=== PATIENT | female | born 1975 | race Caucasian/White ===

== ENCOUNTER 2023-01-05 19:40 | Observation (INO) | payer OTHER ==
[2023-01-05] MEDS ORDERED: Zofran 4 MG/2 ML VIAL IV ONE (20:03)
[2023-01-05] MEDS ORDERED: Sodium Chloride 0.9% 1000 ML 1,000 ML IV STA (20:03)
[2023-01-05 20:16] LABS: Absolute Neutrophil Ct (ANC) 4.21 x10^3/uL (1.4-6.9); BASOPHIL % 0.9 % (0.0-0.4); Basophil (Absolute #) 0.06 x10^3/uL (0-0.4); Eosinophil % 2.2 % (0.00-5.0); Eosinophil (Absolute #) 0.15 x10^3/uL (0-0.5); Hematocrit 40.8 % (35-47); Hemoglobin 13.3 g/dL (12.0-16.0); IMMATURE GRAN # 0.01 x10^3u/L (0.00-0.03); IMMATURE GRAN % 0.1 % (0.00-0.4); Lymphocyte (Absolute #) 1.75 x10^3/uL (1.0-4.6); Lymphocytes % 26.2 % (24.0-44.0); Mean Cell Volume 93.6 fL (78-100); Mean Corpuscular Hemoglobin 30.5 pg (26-32); Mean Corpuscular Hgb Concent. 32.6 g/dL (32-36); Mean Platelet Volume 13.2 fL (7.5-11.0); Monocytes % 7.5 % (0.0-12.0); Neutrophil % 63.1 % (36.0-66.0); Platelet Count 283 x10^3/uL (150-450); Red Blood Count 4.36 x10^6/uL (4.1-5.4); White Blood Count 6.7 x10^3/uL (4.0-10.5)
[2023-01-05] MEDS ORDERED: Zofran 4 MG/2 ML VIAL ONE (20:19)
[2023-01-05] MEDS ORDERED: Sodium Chloride 0.9% 1000 ML 1,000 ML ONE (20:19)
[2023-01-05] MEDS ORDERED: PROTONIX 40 MG IV IV ONE ×2 (20:21→20:51)
[2023-01-05 20:22] LABS: Appearance Clear (Clear); Bacteria Rare /HPF (None Seen); Bilirubin Negative (Negative); Blood Negative (Negative); Epithelial Cells Moderate /HPF (None Seen); Glucose, Urine Negative (Negative); Hyaline Casts NONE SEEN /LPF (0-2); Ketones Negative (Negative); Leukocyte Esterase Trace (Negative); Nitrite Negative (Negative); Ph 6.5 (4.6-8.0); Protein,Urine Dip Negative (Negative); RBC 0-2 /HPF (0-5)
[2023-01-05 20:23] LABS: ADD URINE CULTURE? NO (NO)
[2023-01-05 20:29] LABS: ALBUMIN 4.6 g/dL (3.5-5.0); ALKALINE PHOSPHATASE 196 U/L (38-126); AMYLASE 65 U/L (30-110); ANION GAP 12.3 MEQ/L (5-15); BLOOD UREA NITROGEN 12 mg/dL (7-17); CHLORIDE 107 mmol/L (98-107); Calcium 9.2 mg/dL (8.4-10.2); Carbon Dioxide 26 mmol/L (22-30); Creatinine 1 0.79 mg/dL (0.52-1.04); EST GLOMERULAR FILTRATION RATE > 60.0 ML/MIN; Glucose 94 mg/dL (74-106); LIPASE 97 U/L (23-300); Potassium 3.9 mmol/L (3.5-5.1); SGOT/AST 511 U/L (14-36); SGPT/ALT 387 U/L (0-35); SODIUM 141 mmol/L (137-145); Total Protein 7.5 g/dL (6.3-8.2)
--- NOTE | 2023-01-05 20:30 | ERPHSYRPT ---
- History of Present Illness Historian: patient Exam Limitations: no limitations Patient Subjective Stated Complaint: abd pain and pooping black stools, diarrhea Triage Nursing Assessment: pt ambulated into ER without diff, spouse at bedside. Pt c/o mid upper abd pain for a few months but got significantly worse in the last week. Pt has had diarrhea with black, tarry stools. Abd soft with active bs x4 quad, pain on palpation to mid upper abd region. Physician History: 47 yo wf w epigastric pain x 3 months. Pain is 9/10 and sharp. It does not radiate, and nothing makes it better or worse. Pt has nausea wo vomiting. She also has had diarrhea x1week which is dark. Hematochezia is denied. Dysuria/hematuria/fever/chest pain/cough/coryza/ are all denied. Pt has not seen Dr. Tabares for this pain. Timing/Duration: other (3 months) Quality: sharpness Abdominal Pain Onset Location: epigastric Pain Radiation: no radiation Modifying Factors: Improves With: nothing Associated Symptoms: diarrhea, nausea Previous symptoms: same symptoms as today Allergies/Adverse Reactions: Penicillins Allergy (Verified 01/05/23 20:09) Home Medications: Bupropion HCl Xl 150 mg [Wellbutrin XL 150 MG] 150 mg PO DAILY 01/05/23 [History] Escitalopram Oxalate [Lexapro] 10 mg PO DAILY 01/05/23 [History] Hx Tetanus, Diphtheria Vaccination/Date Given: Yes Hx Influenza Vaccination/Date Given: No Hx Pneumococcal Vaccination/Date Given: No Travel Risk - International Travel Have you traveled outside of the country in past 3 weeks: No - Coronavirus Screening Are you exhibiting any of the following symptoms?: No Close contact with a COVID-19 positive Pt in past 14-21 Days: No - Vaccine Status Have you recieved a Covid-19 vaccination: Yes Machine Feller: [facility] - Vaccination Dates Date of 2cond Vaccination (if applicable): . - Review of Systems Constitutional: No Symptoms Eyes: No Symptoms Ears, Nose, & Throat: No Symptoms Respiratory: No Symptoms Cardiac: No Symptoms Abdominal/Gastrointestinal: No Symptoms, Abdominal Pain, Nausea, Diarrhea Genitourinary Symptoms: No Symptoms Musculoskeletal: No Symptoms Skin: No Symptoms Neurological: No Symptoms Psychological: No Symptoms Endocrine: No Symptoms Hematologic/Lymphatic: No Symptoms Immunological/Allergic: No Symptoms - Past Medical History Pertinent Past Medical History: Yes Neurological History: Migraines Cardiac History: No Pertinent History Respiratory History: Asthma Endocrine Medical History: No Pertinent History Musculoskeletal History: No Pertinent History GI Medical History: Ulcer Psycho-Social History: Anxiety, Depression Other Medical History: 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 knee surgery. tonsils. carpal tunnel - Social History Smoking Status: Former smoker Exposure to second hand smoke: No Drug Use: none Patient Lives Alone: No - Female History Hx Last Menstrual Period: 12/14/22 Hx Now: No - Nursing Vital Signs Nursing Vital Signs: Initial Vital Signs Temperature 97.6 F 01/05/23 19:50 Pulse Rate 62 01/05/23 19:50 Respiratory Rate 16 01/05/23 19:50 Blood Pressure 138/81 01/05/23 19:50 O2 Sat by Pulse Oximetry 100 01/05/23 19:50 Pain Scale Pain Intensity 4 WNL - Physical Exam General Appearance: no apparent distress Eye Exam: PERRL/EOMI, eyes nml inspection Ears, Nose, Throat Exam: normal ENT inspection, TMs normal, pharynx normal, moist mucous membranes Neck Exam: normal inspection, non-tender, supple, full range of motion, No meningismus, No mass, No Brudzinski, No Kernig's Respiratory Exam: normal breath sounds, lungs clear, airway intact Cardiovascular Exam: regular rate/rhythm, normal heart sounds, normal peripheral pulses, capillary refill <2 sec, No murmur Gastrointestinal/Abdomen Exam: soft, tenderness (Moderate epigastric TTP wo gu arding or rebound) Extremity Exam: normal inspection, normal range of motion Neurologic Exam: alert, oriented x 3, cooperative, belt line feeder II-XII nml as tested, normal mood/affect, nml cerebellar function, nml station & gait, sensation nml Skin Exam: normal color, warm, dry Lymphatic Exam: No adenopathy SpO2 Interpretation: normal SpO2: 100 O2 Delivery: Room Air - Course Nursing assessment & vital signs reviewed: Yes - CT Exams Abdomen/Pelvis CT Interpretation: Tele-radiologist Report (CT ab-pelvis w IV Contrast- constipation, nothing acute) Ordered Tests: Active Orders 24 hr Category Date Time Status IV Insertion STAT Care 01/05/23 20:06 Completed ABDOMEN AND PELVIS W CONTRAST [CT] Stat Exams 01/05/23 20:53 Taken AMYLASE Stat Lab 01/05/23 20:11 Completed CBC W DIFF Stat Lab 01/05/23 20:11 Completed CMP Stat Lab 01/05/23 20:11 Completed HCG QUALITATIVE,SERUM Stat Lab 01/05/23 20:15 Completed LIPASE Stat Lab 01/05/23 20:11 Completed [place] Screen Stat Lab 01/05/23 23:01 Completed TROPONIN Q4H Lab 01/05/23 20:11 Completed TROPONIN Q4H Lab 01/06/23 00:15 Ordered TROPONIN Q4H Lab 01/06/23 04:15 Ordered UA W/RFX UR CULTURE Stat Lab 01/05/23 20:05 Completed Urine Triage Profile Stat Lab 01/05/23 20:57 Completed Transfer Order Routine Transfer 01/05/23 Completed Medication Summary Discontinued Medications Generic Name Dose Route Start Last Admin Trade Name Freq PRN Reason Stop Dose Admin Fentanyl Citrate 50 mcg 01/05/23 20:56 01/05/23 21:23 Fentanyl Citrate 100 Mcg/2 Ml* Vial IV 01/05/23 20:57 Not Given STAT ONE Sodium Chloride 1,000 mls @ 999 mls/hr 01/05/23 20:03 01/05/23 21:24 Sodium Chloride 0.9% 1000 Ml IV 01/05/23 21:03 Infused .Q1H1M STA Infusion Sodium Chloride Confirm 01/05/23 20:19 Sodium Chloride 0.9% 1000 Ml Administered 01/05/23 20:20 Dose 1,000 mls @ ud .ROUTE .STK-MED ONE Ketorolac Tromethamine 30 mg 01/05/23 20:59 01/05/23 21:00 Ketorolac Tromethamine 30 Mg/Ml Inj IV 01/05/23 21:00 30 mg STAT ONE Administration Ketorolac Tromethamine Confirm 01/05/23 20:59 Ketorolac Tromethamine 30 Mg/Ml Inj Administered 01/05/23 21:00 Dose 30 mg .ROUTE .STK-MED ONE Ondansetron HCl 4 mg 01/05/23 20:03 01/05/23 20:20 Ondansetron Hcl 4 Mg/2 Ml Vial IV 01/05/23 20:04 4 mg STAT ONE Administration Ondansetron HCl Confirm 01/05/23 20:19 Ondansetron Hcl 4 Mg/2 Ml Vial Administered 01/05/23 20:20 Dose 4 mg .ROUTE .STK-MED ONE Pantoprazole Sodium 40 mg 01/05/23 20:21 01/05/23 20:53 Pantoprazole 40 Mg Vial IV 01/05/23 20:22 40 mg STAT ONE Administration Pantoprazole Sodium Confirm 01/05/23 20:51 Pantoprazole 40 Mg Vial Administered 01/05/23 20:52 Dose 40 mg IV .STK-MED ONE Lab/Rad Data: Laboratory Result Diagrams 01/05/23 20:11 01/05/23 20:11 Laboratory Results 01/05/23 01/05/23 01/05/23 Range/Units 23:01 20:57 20:15 WBC (4.0-10.5) x10^3/uL RBC (4.1-5.4) x10^6/uL Hgb (12.0-16.0) g/dL Hct (35-47) % MCV (78-100) fL MCH (26-32) pg MCHC (32-36) g/dL RDW (11.5-14.0) % Plt Count (150-450) x10^3/uL MPV (7.5-11.0) fL Gran % (36.0-66.0) % Immature Gran % (Auto) (0.00-0.4) % Nucleat RBC Rel Count (0.00-0.1) % Eos # (Auto) (0-0.5) x10^3/uL Immature Gran # (Auto) (0.00-0.03) x10^3u/L Absolute Lymphs (auto) (1.0-4.6) x10^3/uL Absolute Monos (auto) (0.0-1.3) x10^3/uL Absolute Nucleated RBC (0.00-0.01) x10^3u/L Lymphocytes % (24.0-44.0) % Monocytes % (0.0-12.0) % Eosinophils % (0.00-5.0) % Basophils % (0.0-0.4) % Absolute Granulocytes (1.4-6.9) x10^3/uL Basophils # (0-0.4) x10^3/uL Sodium (137-145) mmol/L Potassium (3.5-5.1) mmol/L Chloride (98-107) mmol/L Carbon Dioxide (22-30) mmol/L Anion Gap (5-15) MEQ/L BUN (7-17) mg/dL Creatinine (0.52-1.04) mg/dL Estimated GFR ML/MIN Glucose (74-106) mg/dL Calcium (8.4-10.2) mg/dL Total Bilirubin (0.2-1.3) mg/dL AST (14-36) U/L ALT (0-35) U/L Alkaline Phosphatase (38-126) U/L Troponin I (0.000-0.034) ng/mL Serum Total Protein (6.3-8.2) g/dL Albumin (3.5-5.0) g/dL Amylase (30-110) U/L Lipase (23-300) U/L Serum , Qual NEGATIVE (Negative) Urine Color (Yellow) Urine Appearance (Clear) Urine pH (4.6-8.0) Ur Specific Ernul (1.005-1.030) Urine Protein (Negative) Urine Glucose (UA) (Negative) mg/dL Urine Ketones (Negative) Urine Blood (Negative) Urine Nitrite (Negative) Urine Bilirubin (Negative) Urine Urobilinogen (0.2) mg/dL Ur Leukocyte Esterase (Negative) U Hyaline Cast (Auto) (0-2) /LPF Urine Microscopic RBC (0-5) /HPF Urine Microscopic WBC (0-5) /HPF Ur Epithelial Cells (None Seen) /HPF Urine Bacteria (None Seen) /HPF Urine Culture Reflexed (NO) Urine Opiates Level NEGATIVE (NEGATIVE) Ur Methadone NEGATIVE (NEGATIVE) Urine Barbiturates NEGATIVE (NEGATIVE) Ur Phencyclidine (PCP) NEGATIVE (NEGATIVE) Urine Amphetamine NEGATIVE (NEGATIVE) U Benzodiazepine Level NEGATIVE (NEGATIVE) Urine Cocaine NEGATIVE (NEGATIVE) Urine Marijuana (THC) NEGATIVE (NEGATIVE) Monoscreen NEGATIVE (Negative) Influenza Type A Ag (NEGATIVE) Influenza Type B Ag (NEGATIVE) RSV (PCR) (NEGATIVE) SARS-CoV-2 (PCR) (NEGATIVE) 01/05/23 01/05/23 01/05/23 Range/Units 20:11 20:11 20:11 WBC (4.0-10.5) x10^3/uL RBC (4.1-5.4) x10^6/uL Hgb (12.0-16.0) g/dL Hct (35-47) % MCV (78-100) fL MCH (26-32) pg MCHC (32-36) g/dL RDW (11.5-14.0) % Plt Count (150-450) x10^3/uL MPV (7.5-11.0) fL Gran % (36.0-66.0) % Immature Gran % (Auto) (0.00-0.4) % Nucleat RBC Rel Count (0.00-0.1) % Eos # (Auto) (0-0.5) x10^3/uL Immature Gran # (Auto) (0.00-0.03) x10^3u/L Absolute Lymphs (auto) (1.0-4.6) x10^3/uL Absolute Monos (auto) (0.0-1.3) x10^3/uL Absolute Nucleated RBC (0.00-0.01) x10^3u/L Lymphocytes % (24.0-44.0) % Monocytes % (0.0-12.0) % Eosinophils % (0.00-5.0) % Basophils % (0.0-0.4) % Absolute Granulocytes (1.4-6.9) x10^3/uL Basophils # (0-0.4) x10^3/uL Sodium 141 (137-145) mmol/L Potassium 3.9 (3.5-5.1) mmol/L Chloride 107 (98-107) mmol/L Carbon Dioxide 26 (22-30) mmol/L Anion Gap 12.3 (5-15) MEQ/L BUN 12 (7-17) mg/dL Creatinine 0.79 (0.52-1.04) mg/dL Estimated GFR > 60.0 ML/MIN Glucose 94 (74-106) mg/dL Calcium 9.2 (8.4-10.2) mg/dL Total Bilirubin 1.60 H (0.2-1.3) mg/dL AST 511 H (14-36) U/L ALT 387 H (0-35) U/L Alkaline Phosphatase 196 H (38-126) U/L Troponin I < 0.012 (0.000-0.034) ng/mL Serum Total Protein 7.5 (6.3-8.2) g/dL Albumin 4.6 (3.5-5.0) g/dL Amylase 65 (30-110) U/L Lipase 97 (23-300) U/L Serum , Qual (Negative) Urine Color (Yellow) Urine Appearance (Clear) Urine pH (4.6-8.0) Ur Specific Ernul (1.005-1.030) Urine Protein (Negative) Urine Glucose (UA) (Negative) mg/dL Urine Ketones (Negative) Urine Blood (Negative) Urine Nitrite (Negative) Urine Bilirubin (Negative) Urine Urobilinogen (0.2) mg/dL Ur Leukocyte Esterase (Negative) U Hyaline Cast (Auto) (0-2) /LPF Urine Microscopic RBC (0-5) /HPF Urine Microscopic WBC (0-5) /HPF Ur Epithelial Cells (None Seen) /HPF Urine Bacteria (None Seen) /HPF Urine Culture Reflexed (NO) Urine Opiates Level (NEGATIVE) Ur Methadone (NEGATIVE) Urine Barbiturates (NEGATIVE) Ur Phencyclidine (PCP) (NEGATIVE) Urine Amphetamine (NEGATIVE) U Benzodiazepine Level (NEGATIVE) Urine Cocaine (NEGATIVE) Urine Marijuana (THC) (NEGATIVE) Monoscreen (Negative) Influenza Type A Ag NEGATIVE (NEGATIVE) Influenza Type B Ag NEGATIVE (NEGATIVE) RSV (PCR) NEGATIVE (NEGATIVE) SARS-CoV-2 (PCR) NEGATIVE (NEGATIVE) 01/05/23 01/05/23 Range/Units 20:11 20:05 WBC 6.7 (4.0-10.5) x10^3/uL RBC 4.36 (4.1-5.4) x10^6/uL Hgb 13.3 (12.0-16.0) g/dL Hct 40.8 (35-47) % MCV 93.6 (78-100) fL MCH 30.5 (26-32) pg MCHC 32.6 (32-36) g/dL RDW 13.0 (11.5-14.0) % Plt Count 283 (150-450) x10^3/uL MPV 13.2 H (7.5-11.0) fL Gran % 63.1 (36.0-66.0) % Immature Gran % (Auto) 0.1 (0.00-0.4) % Nucleat RBC Rel Count 0.0 (0.00-0.1) % Eos # (Auto) 0.15 (0-0.5) x10^3/uL Immature Gran # (Auto) 0.01 (0.00-0.03) x10^3u/L Absolute Lymphs (auto) 1.75 (1.0-4.6) x10^3/uL Absolute Monos (auto) 0.50 (0.0-1.3) x10^3/uL Absolute Nucleated RBC 0.00 (0.00-0.01) x10^3u/L Lymphocytes % 26.2 (24.0-44.0) % Monocytes % 7.5 (0.0-12.0) % Eosinophils % 2.2 (0.00-5.0) % Basophils % 0.9 (0.0-0.4) % Absolute Granulocytes 4.21 (1.4-6.9) x10^3/uL Basophils # 0.06 (0-0.4) x10^3/uL Sodium (137-145) mmol/L Potassium (3.5-5.1) mmol/L Chloride (98-107) mmol/L Carbon Dioxide (22-30) mmol/L Anion Gap (5-15) MEQ/L BUN (7-17) mg/dL Creatinine (0.52-1.04) mg/dL Estimated GFR ML/MIN Glucose (74-106) mg/dL Calcium (8.4-10.2) mg/dL Total Bilirubin (0.2-1.3) mg/dL AST (14-36) U/L ALT (0-35) U/L Alkaline Phosphatase (38-126) U/L Troponin I (0.000-0.034) ng/mL Serum Total Protein (6.3-8.2) g/dL Albumin (3.5-5.0) g/dL Amylase (30-110) U/L Lipase (23-300) U/L Serum , Qual (Negative) Urine Color Yellow (Yellow) Urine Appearance Clear (Clear) Urine pH 6.5 (4.6-8.0) Ur Specific Ernul 1.010 (1.005-1.030) Urine Protein Negative (Negative) Urine Glucose (UA) Negative (Negative) mg/dL Urine Ketones Negative (Negative) Urine Blood Negative (Negative) Urine Nitrite Negative (Negative) Urine Bilirubin Negative (Negative) Urine Urobilinogen 1.0 A (0.2) mg/dL Ur Leukocyte Esterase Trace A (Negative) U Hyaline Cast (Auto) NONE SEEN (0-2) /LPF Urine Microscopic RBC 0-2 (0-5) /HPF Urine Microscopic WBC 3-5 (0-5) /HPF Ur Epithelial Cells Moderate A (None Seen) /HPF Urine Bacteria Rare A (None Seen) /HPF Urine Culture Reflexed NO (NO) Urine Opiates Level (NEGATIVE) Ur Methadone (NEGATIVE) Urine Barbiturates (NEGATIVE) Ur Phencyclidine (PCP) (NEGATIVE) Urine Amphetamine (NEGATIVE) U Benzodiazepine Level (NEGATIVE) Urine Cocaine (NEGATIVE) Urine Marijuana (THC) (NEGATIVE) Monoscreen (Negative) Influenza Type A Ag (NEGATIVE) Influenza Type B Ag (NEGATIVE) RSV (PCR) (NEGATIVE) SARS-CoV-2 (PCR) (NEGATIVE) - Progress Progress Note: 01/05/23 22:[address] Rousseau 01/05/23 23:41 Nursing note and vital signs reviewed No food or housing insecurities noted All lab and CT results reviewed and shared w pt/ Additional history per 30mg IV Toradol w mild improvement in pain Obs per Dr. Rousseau Pt is a full code Counseled pt/family regarding: lab results, diagnosis, need for follow-up, rad results - Departure Departure Disposition: Observation Clinical Impression: Epigastric pain, Transaminitis Condition: Stable Critical Care Time: No
[2023-01-05 20:50] LABS: INFLUENZA A NEGATIVE (NEGATIVE); INFLUENZA B NEGATIVE (NEGATIVE); RESPIRATORY SYNCTIAL VIRUS NEGATIVE (NEGATIVE); SARS-CoV-2 Xpert Express NEGATIVE (NEGATIVE)
[2023-01-05] MEDS ORDERED: SUBLIMAZE 100 MCG/2 ML IV ONE (20:56)
[2023-01-05] MEDS ORDERED: TORAdol 30 mg Injection ONE (20:59)
[2023-01-05] MEDS ORDERED: TORAdol 30 mg Injection IV ONE (20:59)
[2023-01-05 21:19] LABS: Amphetamine,Urine NEGATIVE (NEGATIVE); Barbiturate,Urine NEGATIVE (NEGATIVE); Benzodiazepine,Urine NEGATIVE (NEGATIVE); Cocaine,Urine NEGATIVE (NEGATIVE); Methadone,Urine NEGATIVE (NEGATIVE); Opiate,Urine NEGATIVE (NEGATIVE); PCP,Urine NEGATIVE (NEGATIVE); THC,Urine NEGATIVE (NEGATIVE)
[2023-01-06] MEDS ORDERED: PROTONIX 40 MG IV IV SCH ×2 (01:45→22:00)
--- NOTE | 2023-01-06 01:48 | PCM.HP ---
History of Present Illness - Chief Complaint Chief Complaint: Abdominal pain/Transaminitis Date: 01/06/23 History of Present Illness: is a 47 year old female. 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 Pain in HEATHER region. Pt has hx of chronic abd pain with pain in same location. Pain worse the last few days. Pt had also noted black stool. Pt denies hx of NSAID use. Denies tylenol use. Pt was admitted 2/2 increased LFTs: hx of cholecystectomy/denies abnormal labs last September. - Review of Systems Constitutional: No Weight Loss Eyes: No Symptoms Ears, Nose, & Throat: No Symptoms Respiratory: No Symptoms Cardiac: No Symptoms Abdominal/Gastrointestinal: Abdominal Pain Genitourinary Symptoms: No Symptoms Musculoskeletal: No Symptoms Skin: Rash Neurological: Parasthesia Psychological: No Symptoms Endocrine: No Symptoms Hematologic/Lymphatic: No Symptoms Medications & Allergies Home Medications: Home Medication List Bupropion HCl Xl 150 mg [Wellbutrin XL 150 MG] 150 mg PO DAILY 01/05/23 [History Confirmed 01/05/23] Escitalopram Oxalate [Lexapro] 10 mg PO DAILY 01/05/23 [History Confirmed 01/05/23] Allergies/Adverse Reactions: Allergies Allergy/AdvReac Type Severity Reaction Status Date / Time Penicillins Allergy Verified 01/05/23 20:09 - Past Medical History Past Medical History: Yes Neurological History: Migraines Cardiac History: No Pertinent History Respiratory History: Asthma Endocrine Medical History: No Pertinent History Musculoskelatal History: No Pertinent History GI Medical History: Ulcer Pyscho-Social History: Anxiety, Depression Comment: back issues in the past, EOE - Female History Hx Last Menstrual Period: 12/14/22 Are you now?: No - Past Surgical History Past Surgical History: Yes GI Surgical History: Cholecystectomy Other Surgical History: explor lap. knee surgery. tonsils. carpal tunnel - Social History Smoking Status: Never smoker Exposure to second hand smoke: No Alcohol: Occasionally Drug Use: none - Physical Exam Vital Signs: Vital Signs - 24 hr Temp Pulse Resp BP Pulse Ox 01/05/23 23:51 97.4 F 51 L 17 118/64 100 01/05/23 23:44 100 01/05/23 23:07 62 111/77 100 01/05/23 22:07 54 L 17 120/78 98 01/05/23 21:00 54 L 17 103/99 100 01/05/23 20:48 52 L 16 136/81 100 01/05/23 19:50 97.6 F 62 16 138/81 100 General Appearance: no apparent distress Neurologic Exam: alert, oriented x 3, cooperative Eye Exam: PERRL/EOMI Ears, Nose, Throat Exam: normal ENT inspection Neck Exam: normal inspection Respiratory Exam: normal breath sounds Cardiovascular Exam: regular rate/rhythm, normal heart sounds Gastrointestinal/Abdomen Exam: soft, normal bowel sounds, No tenderness Back Exam: normal inspection Skin Exam: rash (in hands) Results - Labs Lab/Micro Results: Lab Results-Last 24 Hours 01/05/23 01/05/23 01/05/23 Range/Units 20:05 20:11 20:11 WBC 6.7 (4.0-10.5) x10^3/uL RBC 4.36 (4.1-5.4) x10^6/uL Hgb 13.3 (12.0-16.0) g/dL Hct 40.8 (35-47) % MCV 93.6 (78-100) fL MCH 30.5 (26-32) pg MCHC 32.6 (32-36) g/dL RDW 13.0 (11.5-14.0) % Plt Count 283 (150-450) x10^3/uL MPV 13.2 H (7.5-11.0) fL Gran % 63.1 (36.0-66.0) % Immature Gran % (Auto) 0.1 (0.00-0.4) % Nucleat RBC Rel Count 0.0 (0.00-0.1) % Eos # (Auto) 0.15 (0-0.5) x10^3/uL Immature Gran # (Auto) 0.01 (0.00-0.03) x10^3u/L Absolute Lymphs (auto) 1.75 (1.0-4.6) x10^3/uL Absolute Monos (auto) 0.50 (0.0-1.3) x10^3/uL Absolute Nucleated RBC 0.00 (0.00-0.01) x10^3u/L Lymphocytes % 26.2 (24.0-44.0) % Monocytes % 7.5 (0.0-12.0) % Eosinophils % 2.2 (0.00-5.0) % Basophils % 0.9 (0.0-0.4) % Absolute Granulocytes 4.21 (1.4-6.9) x10^3/uL Basophils # 0.06 (0-0.4) x10^3/uL Sodium 141 (137-145) mmol/L Potassium 3.9 (3.5-5.1) mmol/L Chloride 107 (98-107) mmol/L Carbon Dioxide 26 (22-30) mmol/L Anion Gap 12.3 (5-15) MEQ/L BUN 12 (7-17) mg/dL Creatinine 0.79 (0.52-1.04) mg/dL Estimated GFR > 60.0 ML/MIN Glucose 94 (74-106) mg/dL Calcium 9.2 (8.4-10.2) mg/dL Total Bilirubin 1.60 H (0.2-1.3) mg/dL AST 511 H (14-36) U/L ALT 387 H (0-35) U/L Alkaline Phosphatase 196 H (38-126) U/L Troponin I (0.000-0.034) ng/mL Serum Total Protein 7.5 (6.3-8.2) g/dL Albumin 4.6 (3.5-5.0) g/dL Amylase 65 (30-110) U/L Lipase 97 (23-300) U/L Serum , Qual (Negative) Urine Color Yellow (Yellow) Urine Appearance Clear (Clear) Urine pH 6.5 (4.6-8.0) Ur Specific [place] 1.010 (1.005-1.030) Urine Protein Negative (Negative) Urine Glucose (UA) Negative (Negative) mg/dL Urine Ketones Negative (Negative) Urine Blood Negative (Negative) Urine Nitrite Negative (Negative) Urine Bilirubin Negative (Negative) Urine Urobilinogen 1.0 A (0.2) mg/dL Ur Leukocyte Esterase Trace A (Negative) U Hyaline Cast (Auto) NONE SEEN (0-2) /LPF Urine Microscopic RBC 0-2 (0-5) /HPF Urine Microscopic WBC 3-5 (0-5) /HPF Ur Epithelial Cells Moderate A (None Seen) /HPF Urine Bacteria Rare A (None Seen) /HPF Urine Culture Reflexed NO (NO) Urine Opiates Level (NEGATIVE) Ur Methadone (NEGATIVE) Urine Barbiturates (NEGATIVE) Ur Phencyclidine (PCP) (NEGATIVE) Urine Amphetamine (NEGATIVE) U Benzodiazepine Level (NEGATIVE) Urine Cocaine (NEGATIVE) Urine Marijuana (THC) (NEGATIVE) Monoscreen (Negative) Influenza Type A Ag (NEGATIVE) Influenza Type B Ag (NEGATIVE) RSV (PCR) (NEGATIVE) SARS-CoV-2 (PCR) (NEGATIVE) 01/05/23 01/05/23 01/05/23 Range/Units 20:11 20:11 20:15 WBC (4.0-10.5) x10^3/uL RBC (4.1-5.4) x10^6/uL Hgb (12.0-16.0) g/dL Hct (35-47) % MCV (78-100) fL MCH (26-32) pg MCHC (32-36) g/dL RDW (11.5-14.0) % Plt Count (150-450) x10^3/uL MPV (7.5-11.0) fL Gran % (36.0-66.0) % Immature Gran % (Auto) (0.00-0.4) % Nucleat RBC Rel Count (0.00-0.1) % Eos # (Auto) (0-0.5) x10^3/uL Immature Gran # (Auto) (0.00-0.03) x10^3u/L Absolute Lymphs (auto) (1.0-4.6) x10^3/uL Absolute Monos (auto) (0.0-1.3) x10^3/uL Absolute Nucleated RBC (0.00-0.01) x10^3u/L Lymphocytes % (24.0-44.0) % Monocytes % (0.0-12.0) % Eosinophils % (0.00-5.0) % Basophils % (0.0-0.4) % Absolute Granulocytes (1.4-6.9) x10^3/uL Basophils # (0-0.4) x10^3/uL Sodium (137-145) mmol/L Potassium (3.5-5.1) mmol/L Chloride (98-107) mmol/L Carbon Dioxide (22-30) mmol/L Anion Gap (5-15) MEQ/L BUN (7-17) mg/dL Creatinine (0.52-1.04) mg/dL Estimated GFR ML/MIN Glucose (74-106) mg/dL Calcium (8.4-10.2) mg/dL Total Bilirubin (0.2-1.3) mg/dL AST (14-36) U/L ALT (0-35) U/L Alkaline Phosphatase (38-126) U/L Troponin I < 0.012 (0.000-0.034) ng/mL Serum Total Protein (6.3-8.2) g/dL Albumin (3.5-5.0) g/dL Amylase (30-110) U/L Lipase (23-300) U/L Serum , Qual NEGATIVE (Negative) Urine Color (Yellow) Urine Appearance (Clear) Urine pH (4.6-8.0) Ur Specific [place] (1.005-1.030) Urine Protein (Negative) Urine Glucose (UA) (Negative) mg/dL Urine Ketones (Negative) Urine Blood (Negative) Urine Nitrite (Negative) Urine Bilirubin (Negative) Urine Urobilinogen (0.2) mg/dL Ur Leukocyte Esterase (Negative) U Hyaline Cast (Auto) (0-2) /LPF Urine Microscopic RBC (0-5) /HPF Urine Microscopic WBC (0-5) /HPF Ur Epithelial Cells (None Seen) /HPF Urine Bacteria (None Seen) /HPF Urine Culture Reflexed (NO) Urine Opiates Level (NEGATIVE) Ur Methadone (NEGATIVE) Urine Barbiturates (NEGATIVE) Ur Phencyclidine (PCP) (NEGATIVE) Urine Amphetamine (NEGATIVE) U Benzodiazepine Level (NEGATIVE) Urine Cocaine (NEGATIVE) Urine Marijuana (THC) (NEGATIVE) Monoscreen (Negative) Influenza Type A Ag NEGATIVE (NEGATIVE) Influenza Type B Ag NEGATIVE (NEGATIVE) RSV (PCR) NEGATIVE (NEGATIVE) SARS-CoV-2 (PCR) NEGATIVE (NEGATIVE) 01/05/23 01/05/23 Range/Units 20:57 23:01 WBC (4.0-10.5) x10^3/uL RBC (4.1-5.4) x10^6/uL Hgb (12.0-16.0) g/dL Hct (35-47) % MCV (78-100) fL MCH (26-32) pg MCHC (32-36) g/dL RDW (11.5-14.0) % Plt Count (150-450) x10^3/uL MPV (7.5-11.0) fL Gran % (36.0-66.0) % Immature Gran % (Auto) (0.00-0.4) % Nucleat RBC Rel Count (0.00-0.1) % Eos # (Auto) (0-0.5) x10^3/uL Immature Gran # (Auto) (0.00-0.03) x10^3u/L Absolute Lymphs (auto) (1.0-4.6) x10^3/uL Absolute Monos (auto) (0.0-1.3) x10^3/uL Absolute Nucleated RBC (0.00-0.01) x10^3u/L Lymphocytes % (24.0-44.0) % Monocytes % (0.0-12.0) % Eosinophils % (0.00-5.0) % Basophils % (0.0-0.4) % Absolute Granulocytes (1.4-6.9) x10^3/uL Basophils # (0-0.4) x10^3/uL Sodium (137-145) mmol/L Potassium (3.5-5.1) mmol/L Chloride (98-107) mmol/L Carbon Dioxide (22-30) mmol/L Anion Gap (5-15) MEQ/L BUN (7-17) mg/dL Creatinine (0.52-1.04) mg/dL Estimated GFR ML/MIN Glucose (74-106) mg/dL Calcium (8.4-10.2) mg/dL Total Bilirubin (0.2-1.3) mg/dL AST (14-36) U/L ALT (0-35) U/L Alkaline Phosphatase (38-126) U/L Troponin I (0.000-0.034) ng/mL Serum Total Protein (6.3-8.2) g/dL Albumin (3.5-5.0) g/dL Amylase (30-110) U/L Lipase (23-300) U/L Serum , Qual (Negative) Urine Color (Yellow) Urine Appearance (Clear) Urine pH (4.6-8.0) Ur Specific [place] (1.005-1.030) Urine Protein (Negative) Urine Glucose (UA) (Negative) mg/dL Urine Ketones (Negative) Urine Blood (Negative) Urine Nitrite (Negative) Urine Bilirubin (Negative) Urine Urobilinogen (0.2) mg/dL Ur Leukocyte Esterase (Negative) U Hyaline Cast (Auto) (0-2) /LPF Urine Microscopic RBC (0-5) /HPF Urine Microscopic WBC (0-5) /HPF Ur Epithelial Cells (None Seen) /HPF Urine Bacteria (None Seen) /HPF Urine Culture Reflexed (NO) Urine Opiates Level NEGATIVE (NEGATIVE) Ur Methadone NEGATIVE (NEGATIVE) Urine Barbiturates NEGATIVE (NEGATIVE) Ur Phencyclidine (PCP) NEGATIVE (NEGATIVE) Urine Amphetamine NEGATIVE (NEGATIVE) U Benzodiazepine Level NEGATIVE (NEGATIVE) Urine Cocaine NEGATIVE (NEGATIVE) Urine Marijuana (THC) NEGATIVE (NEGATIVE) Monoscreen NEGATIVE (Negative) Influenza Type A Ag (NEGATIVE) Influenza Type B Ag (NEGATIVE) RSV (PCR) (NEGATIVE) SARS-CoV-2 (PCR) (NEGATIVE) - Radiology Impressions Radiology Exams & Impressions: Radiology Procedures Category Date Time Status ABDOMEN AND PELVIS W CONTRAST [CT] Stat Exams 01/05/23 20:53 Taken Assessment/Plan (1) Transaminitis Current Visit: Yes Status: Acute Assessment & Plan: A/P: 1. Increased LFTs: shows both obstruction and transaminitis. Hx of cholecystectomy. Will send hep serologies/tylenol. ? if needs MRCP. Will need GI consult in am 2. Hx of PUD/Melena: Consult GI for endoscopy 3. Chronic Urticaria: will need outpt AI eval 4. FEN: oral diet 5. PX: Pt is mobile.? GI bleed. Amado Rousseau MD entire consult done via telemedicine. Code(s): R74.01 - ELEVATION OF LEVELS OF LIVER TRANSAMINASE LEVELS Telemedicine Encounter - Telemedicine Encounter Telemedicine Encounter: The entirety of this encounter was performed via Telemedicine"
[2023-01-06] MEDS ORDERED: ULTRAM 50 MG PO PRN (02:29)
[2023-01-06 05:01] LABS: Absolute Neutrophil Ct (ANC) 2.56 x10^3/uL (1.4-6.9); BASOPHIL % 1.3 % (0.0-0.4); Basophil (Absolute #) 0.06 x10^3/uL (0-0.4); Eosinophil % 2.5 % (0.00-5.0); Eosinophil (Absolute #) 0.12 x10^3/uL (0-0.5); Hematocrit 33.6 % (35-47); IMMATURE GRAN # 0.01 x10^3u/L (0.00-0.03); IMMATURE GRAN % 0.2 % (0.00-0.4); Lymphocyte (Absolute #) 1.54 x10^3/uL (1.0-4.6); Lymphocytes % 32.3 % (24.0-44.0); Mean Cell Volume 92.3 fL (78-100); Mean Corpuscular Hemoglobin 30.2 pg (26-32); Mean Corpuscular Hgb Concent. 32.7 g/dL (32-36); Mean Platelet Volume 13.7 fL (7.5-11.0); Monocyte (Absolute #) 0.48 x10^3/uL (0.0-1.3); Monocytes % 10.1 % (0.0-12.0); Neutrophil % 53.6 % (36.0-66.0); Platelet Count 215 x10^3/uL (150-450); Red Blood Count 3.64 x10^6/uL (4.1-5.4); Red Cell Distribution Width 13.2 % (11.5-14.0); White Blood Count 4.8 x10^3/uL (4.0-10.5)
[2023-01-06 05:17] LABS: ALBUMIN 3.4 g/dL (3.5-5.0); ALKALINE PHOSPHATASE 156 U/L (38-126); ANION GAP 8.2 MEQ/L (5-15); BLOOD UREA NITROGEN 10 mg/dL (7-17); CHLORIDE 111 mmol/L (98-107); Calcium 8.4 mg/dL (8.4-10.2); Carbon Dioxide 24 mmol/L (22-30); Creatinine 1 0.73 mg/dL (0.52-1.04); EST GLOMERULAR FILTRATION RATE > 60.0 ML/MIN; Glucose 91 mg/dL (74-106); Potassium 3.9 mmol/L (3.5-5.1); SGOT/AST 421 U/L (14-36); SGPT/ALT 376 U/L (0-35); SODIUM 139 mmol/L (137-145)
[2023-01-06 08:15] LABS: Slide Review 1 YES
--- NOTE | 2023-01-06 08:43 | XRAY ---
Indication: Epigastric pain. Nausea, vomiting, diarrhea, and blood in stool. Multiple contiguous axial images obtained through the abdomen and pelvis using 80 cc Isovue 370 contrast. Comparison: None Lung bases clear. Heart not enlarged. Noncontrasted stomach and bowel loops appear nonobstructed with normal appendix. Mild diffuse fecal debris throughout, greatest in the ascending and transverse colon. No free fluid/air. Previous cholecystectomy. Remaining liver, pancreas, spleen, adrenal glands, kidneys, ureters, bladder, uterus, and aorta are normal in CT appearance and attenuation. No pathologic retroperitoneal lymphadenopathy. Osseous structures intact with moderate L5-S1 degenerative disc disease and bilateral L5 spondylolysis with 1.3 cm anterolisthesis. Also moderate double curvature thoracolumbar scoliosis. Impression: 1. Diffuse fecal stasis and chronic bony findings. 2. Remaining CT abdomen/pelvis with contrast exam is negative. Comment: Preliminary interpretation made by [facility]. No critical discrepancy.
--- NOTE | 2023-01-06 08:44 | PCM.NOTE ---
Date and Time: 01/06/23 0840 Subjective Assessment: patient is comfortable at the moment, has some chronic GI issues, hx of EoE. for the last 3 days worsening epigastric pain with black diarrhea. no nsaid use, no new meds. has been fatigued and acute illness, +exposure to mono Objective Exam General Appearance: no apparent distress, alert Neurologic Exam: alert, oriented x 3, cooperative, normal mood/affect, nml cerebellar function, sensation nml, No motor deficits Skin Exam: normal color, warm, dry Eye Exam: PERRL, EOMI, eyes nml inspection Ears, Nose, Throat Exam: normal ENT inspection, pharynx normal, moist mucous membranes Neck Exam: normal inspection, non-tender, supple, full range of motion Respiratory Exam: normal breath sounds, lungs clear, No respiratory distress Cardiovascular Exam: regular rate/rhythm, normal heart sounds Gastrointestinal/Abdomen Exam: soft, No tenderness, No mass, No guarding, No rebound Extremity Exam: normal inspection, normal range of motion OBJECTIVE DATA Vital Signs: Vital Signs - 24 hr Temp Pulse Resp BP Pulse Ox 01/06/23 07:16 98.6 F 57 L 16 94/56 98 01/06/23 03:40 97.9 F 55 L 16 104/55 97 01/05/23 23:51 97.4 F 51 L 17 118/64 100 01/05/23 23:44 100 01/05/23 23:07 62 111/77 100 01/05/23 22:07 54 L 17 120/78 98 01/05/23 21:00 54 L 17 103/99 100 01/05/23 20:48 52 L 16 136/81 100 01/05/23 19:50 97.6 F 62 16 138/81 100 Pain Assessment - Last Documented Pain Intensity 6 Pain Scale Used 0-10 Pain Scale Intake and Output: Intake & Output 01/03/23 01/04/23 01/05/23 01/06/23 11:59 11:59 11:59 11:59 Weight 69.5 kg Lab Results: Lab Results-Last 24 Hours 01/05/23 01/05/23 01/05/23 Range/Units 20:05 20:11 20:11 WBC 6.7 (4.0-10.5) x10^3/uL RBC 4.36 (4.1-5.4) x10^6/uL Hgb 13.3 (12.0-16.0) g/dL Hct 40.8 (35-47) % MCV 93.6 (78-100) fL MCH 30.5 (26-32) pg MCHC 32.6 (32-36) g/dL RDW 13.0 (11.5-14.0) % Plt Count 283 (150-450) x10^3/uL MPV 13.2 H (7.5-11.0) fL Gran % 63.1 (36.0-66.0) % Immature Gran % (Auto) 0.1 (0.00-0.4) % Nucleat RBC Rel Count 0.0 (0.00-0.1) % Eos # (Auto) 0.15 (0-0.5) x10^3/uL Immature Gran # (Auto) 0.01 (0.00-0.03) x10^3u/L Absolute Lymphs (auto) 1.75 (1.0-4.6) x10^3/uL Absolute Monos (auto) 0.50 (0.0-1.3) x10^3/uL Absolute Nucleated RBC 0.00 (0.00-0.01) x10^3u/L Lymphocytes % 26.2 (24.0-44.0) % Monocytes % 7.5 (0.0-12.0) % Eosinophils % 2.2 (0.00-5.0) % Basophils % 0.9 (0.0-0.4) % Absolute Granulocytes 4.21 (1.4-6.9) x10^3/uL Basophils # 0.06 (0-0.4) x10^3/uL Sodium 141 (137-145) mmol/L Potassium 3.9 (3.5-5.1) mmol/L Chloride 107 (98-107) mmol/L Carbon Dioxide 26 (22-30) mmol/L Anion Gap 12.3 (5-15) MEQ/L BUN 12 (7-17) mg/dL Creatinine 0.79 (0.52-1.04) mg/dL Estimated GFR > 60.0 ML/MIN Glucose 94 (74-106) mg/dL Calcium 9.2 (8.4-10.2) mg/dL Total Bilirubin 1.60 H (0.2-1.3) mg/dL AST 511 H (14-36) U/L ALT 387 H (0-35) U/L Alkaline Phosphatase 196 H (38-126) U/L Troponin I (0.000-0.034) ng/mL Serum Total Protein 7.5 (6.3-8.2) g/dL Albumin 4.6 (3.5-5.0) g/dL Amylase 65 (30-110) U/L Lipase 97 (23-300) U/L Serum , Qual (Negative) Urine Color Yellow (Yellow) Urine Appearance Clear (Clear) Urine pH 6.5 (4.6-8.0) Ur Specific [place] 1.010 (1.005-1.030) Urine Protein Negative (Negative) Urine Glucose (UA) Negative (Negative) mg/dL Urine Ketones Negative (Negative) Urine Blood Negative (Negative) Urine Nitrite Negative (Negative) Urine Bilirubin Negative (Negative) Urine Urobilinogen 1.0 A (0.2) mg/dL Ur Leukocyte Esterase Trace A (Negative) U Hyaline Cast (Auto) NONE SEEN (0-2) /LPF Urine Microscopic RBC 0-2 (0-5) /HPF Urine Microscopic WBC 3-5 (0-5) /HPF Ur Epithelial Cells Moderate A (None Seen) /HPF Urine Bacteria Rare A (None Seen) /HPF Urine Culture Reflexed NO (NO) Urine Opiates Level (NEGATIVE) Ur Methadone (NEGATIVE) Acetaminophen (10-30) ug/ml Urine Barbiturates (NEGATIVE) Ur Phencyclidine (PCP) (NEGATIVE) Urine Amphetamine (NEGATIVE) U Benzodiazepine Level (NEGATIVE) Urine Cocaine (NEGATIVE) Urine Marijuana (THC) (NEGATIVE) Monoscreen (Negative) Influenza Type A Ag (NEGATIVE) Influenza Type B Ag (NEGATIVE) RSV (PCR) (NEGATIVE) SARS-CoV-2 (PCR) (NEGATIVE) Slides for Path Review 01/05/23 01/05/23 01/05/23 Range/Units 20:11 20:11 20:15 WBC (4.0-10.5) x10^3/uL RBC (4.1-5.4) x10^6/uL Hgb (12.0-16.0) g/dL Hct (35-47) % MCV (78-100) fL MCH (26-32) pg MCHC (32-36) g/dL RDW (11.5-14.0) % Plt Count (150-450) x10^3/uL MPV (7.5-11.0) fL Gran % (36.0-66.0) % Immature Gran % (Auto) (0.00-0.4) % Nucleat RBC Rel Count (0.00-0.1) % Eos # (Auto) (0-0.5) x10^3/uL Immature Gran # (Auto) (0.00-0.03) x10^3u/L Absolute Lymphs (auto) (1.0-4.6) x10^3/uL Absolute Monos (auto) (0.0-1.3) x10^3/uL Absolute Nucleated RBC (0.00-0.01) x10^3u/L Lymphocytes % (24.0-44.0) % Monocytes % (0.0-12.0) % Eosinophils % (0.00-5.0) % Basophils % (0.0-0.4) % Absolute Granulocytes (1.4-6.9) x10^3/uL Basophils # (0-0.4) x10^3/uL Sodium (137-145) mmol/L Potassium (3.5-5.1) mmol/L Chloride (98-107) mmol/L Carbon Dioxide (22-30) mmol/L Anion Gap (5-15) MEQ/L BUN (7-17) mg/dL Creatinine (0.52-1.04) mg/dL Estimated GFR ML/MIN Glucose (74-106) mg/dL Calcium (8.4-10.2) mg/dL Total Bilirubin (0.2-1.3) mg/dL AST (14-36) U/L ALT (0-35) U/L Alkaline Phosphatase (38-126) U/L Troponin I < 0.012 (0.000-0.034) ng/mL Serum Total Protein (6.3-8.2) g/dL Albumin (3.5-5.0) g/dL Amylase (30-110) U/L Lipase (23-300) U/L Serum , Qual NEGATIVE (Negative) Urine Color (Yellow) Urine Appearance (Clear) Urine pH (4.6-8.0) Ur Specific [place] (1.005-1.030) Urine Protein (Negative) Urine Glucose (UA) (Negative) mg/dL Urine Ketones (Negative) Urine Blood (Negative) Urine Nitrite (Negative) Urine Bilirubin (Negative) Urine Urobilinogen (0.2) mg/dL Ur Leukocyte Esterase (Negative) U Hyaline Cast (Auto) (0-2) /LPF Urine Microscopic RBC (0-5) /HPF Urine Microscopic WBC (0-5) /HPF Ur Epithelial Cells (None Seen) /HPF Urine Bacteria (None Seen) /HPF Urine Culture Reflexed (NO) Urine Opiates Level (NEGATIVE) Ur Methadone (NEGATIVE) Acetaminophen (10-30) ug/ml Urine Barbiturates (NEGATIVE) Ur Phencyclidine (PCP) (NEGATIVE) Urine Amphetamine (NEGATIVE) U Benzodiazepine Level (NEGATIVE) Urine Cocaine (NEGATIVE) Urine Marijuana (THC) (NEGATIVE) Monoscreen (Negative) Influenza Type A Ag NEGATIVE (NEGATIVE) Influenza Type B Ag NEGATIVE (NEGATIVE) RSV (PCR) NEGATIVE (NEGATIVE) SARS-CoV-2 (PCR) NEGATIVE (NEGATIVE) Slides for Path Review 01/05/23 01/05/23 01/06/23 Range/Units 20:57 23:01 01:20 WBC (4.0-10.5) x10^3/uL RBC (4.1-5.4) x10^6/uL Hgb (12.0-16.0) g/dL Hct (35-47) % MCV (78-100) fL MCH (26-32) pg MCHC (32-36) g/dL RDW (11.5-14.0) % Plt Count (150-450) x10^3/uL MPV (7.5-11.0) fL Gran % (36.0-66.0) % Immature Gran % (Auto) (0.00-0.4) % Nucleat RBC Rel Count (0.00-0.1) % Eos # (Auto) (0-0.5) x10^3/uL Immature Gran # (Auto) (0.00-0.03) x10^3u/L Absolute Lymphs (auto) (1.0-4.6) x10^3/uL Absolute Monos (auto) (0.0-1.3) x10^3/uL Absolute Nucleated RBC (0.00-0.01) x10^3u/L Lymphocytes % (24.0-44.0) % Monocytes % (0.0-12.0) % Eosinophils % (0.00-5.0) % Basophils % (0.0-0.4) % Absolute Granulocytes (1.4-6.9) x10^3/uL Basophils # (0-0.4) x10^3/uL Sodium (137-145) mmol/L Potassium (3.5-5.1) mmol/L Chloride (98-107) mmol/L Carbon Dioxide (22-30) mmol/L Anion Gap (5-15) MEQ/L BUN (7-17) mg/dL Creatinine (0.52-1.04) mg/dL Estimated GFR ML/MIN Glucose (74-106) mg/dL Calcium (8.4-10.2) mg/dL Total Bilirubin (0.2-1.3) mg/dL AST (14-36) U/L ALT (0-35) U/L Alkaline Phosphatase (38-126) U/L Troponin I < 0.012 (0.000-0.034) ng/mL Serum Total Protein (6.3-8.2) g/dL Albumin (3.5-5.0) g/dL Amylase (30-110) U/L Lipase (23-300) U/L Serum , Qual (Negative) Urine Color (Yellow) Urine Appearance (Clear) Urine pH (4.6-8.0) Ur Specific [place] (1.005-1.030) Urine Protein (Negative) Urine Glucose (UA) (Negative) mg/dL Urine Ketones (Negative) Urine Blood (Negative) Urine Nitrite (Negative) Urine Bilirubin (Negative) Urine Urobilinogen (0.2) mg/dL Ur Leukocyte Esterase (Negative) U Hyaline Cast (Auto) (0-2) /LPF Urine Microscopic RBC (0-5) /HPF Urine Microscopic WBC (0-5) /HPF Ur Epithelial Cells (None Seen) /HPF Urine Bacteria (None Seen) /HPF Urine Culture Reflexed (NO) Urine Opiates Level NEGATIVE (NEGATIVE) Ur Methadone NEGATIVE (NEGATIVE) Acetaminophen (10-30) ug/ml Urine Barbiturates NEGATIVE (NEGATIVE) Ur Phencyclidine (PCP) NEGATIVE (NEGATIVE) Urine Amphetamine NEGATIVE (NEGATIVE) U Benzodiazepine Level NEGATIVE (NEGATIVE) Urine Cocaine NEGATIVE (NEGATIVE) Urine Marijuana (THC) NEGATIVE (NEGATIVE) Monoscreen NEGATIVE (Negative) Influenza Type A Ag (NEGATIVE) Influenza Type B Ag (NEGATIVE) RSV (PCR) (NEGATIVE) SARS-CoV-2 (PCR) (NEGATIVE) Slides for Path Review 01/06/23 01/06/23 01/06/23 Range/Units 04:26 04:26 04:26 WBC (4.0-10.5) x10^3/uL RBC (4.1-5.4) x10^6/uL Hgb (12.0-16.0) g/dL Hct (35-47) % MCV (78-100) fL MCH (26-32) pg MCHC (32-36) g/dL RDW (11.5-14.0) % Plt Count (150-450) x10^3/uL MPV (7.5-11.0) fL Gran % (36.0-66.0) % Immature Gran % (Auto) (0.00-0.4) % Nucleat RBC Rel Count (0.00-0.1) % Eos # (Auto) (0-0.5) x10^3/uL Immature Gran # (Auto) (0.00-0.03) x10^3u/L Absolute Lymphs (auto) (1.0-4.6) x10^3/uL Absolute Monos (auto) (0.0-1.3) x10^3/uL Absolute Nucleated RBC (0.00-0.01) x10^3u/L Lymphocytes % (24.0-44.0) % Monocytes % (0.0-12.0) % Eosinophils % (0.00-5.0) % Basophils % (0.0-0.4) % Absolute Granulocytes (1.4-6.9) x10^3/uL Basophils # (0-0.4) x10^3/uL Sodium 139 (137-145) mmol/L Potassium 3.9 (3.5-5.1) mmol/L Chloride 111 H (98-107) mmol/L Carbon Dioxide 24 (22-30) mmol/L Anion Gap 8.2 (5-15) MEQ/L BUN 10 (7-17) mg/dL Creatinine 0.73 (0.52-1.04) mg/dL Estimated GFR > 60.0 ML/MIN Glucose 91 (74-106) mg/dL Calcium 8.4 (8.4-10.2) mg/dL Total Bilirubin 2.00 H (0.2-1.3) mg/dL AST 421 H (14-36) U/L ALT 376 H (0-35) U/L Alkaline Phosphatase 156 H (38-126) U/L Troponin I < 0.012 (0.000-0.034) ng/mL Serum Total Protein 6.0 L (6.3-8.2) g/dL Albumin 3.4 L (3.5-5.0) g/dL Amylase (30-110) U/L Lipase (23-300) U/L Serum , Qual (Negative) Urine Color (Yellow) Urine Appearance (Clear) Urine pH (4.6-8.0) Ur Specific [place] (1.005-1.030) Urine Protein (Negative) Urine Glucose (UA) (Negative) mg/dL Urine Ketones (Negative) Urine Blood (Negative) Urine Nitrite (Negative) Urine Bilirubin (Negative) Urine Urobilinogen (0.2) mg/dL Ur Leukocyte Esterase (Negative) U Hyaline Cast (Auto) (0-2) /LPF Urine Microscopic RBC (0-5) /HPF Urine Microscopic WBC (0-5) /HPF Ur Epithelial Cells (None Seen) /HPF Urine Bacteria (None Seen) /HPF Urine Culture Reflexed (NO) Urine Opiates Level (NEGATIVE) Ur Methadone (NEGATIVE) Acetaminophen < 10 L (10-30) ug/ml Urine Barbiturates (NEGATIVE) Ur Phencyclidine (PCP) (NEGATIVE) Urine Amphetamine (NEGATIVE) U Benzodiazepine Level (NEGATIVE) Urine Cocaine (NEGATIVE) Urine Marijuana (THC) (NEGATIVE) Monoscreen (Negative) Influenza Type A Ag (NEGATIVE) Influenza Type B Ag (NEGATIVE) RSV (PCR) (NEGATIVE) SARS-CoV-2 (PCR) (NEGATIVE) Slides for Path Review 01/06/23 Range/Units 04:26 WBC 4.8 (4.0-10.5) x10^3/uL RBC 3.64 L (4.1-5.4) x10^6/uL Hgb 11.0 L (12.0-16.0) g/dL Hct 33.6 L (35-47) % MCV 92.3 (78-100) fL MCH 30.2 (26-32) pg MCHC 32.7 (32-36) g/dL RDW 13.2 (11.5-14.0) % Plt Count 215 (150-450) x10^3/uL MPV 13.7 H (7.5-11.0) fL Gran % 53.6 (36.0-66.0) % Immature Gran % (Auto) 0.2 (0.00-0.4) % Nucleat RBC Rel Count 0.0 (0.00-0.1) % Eos # (Auto) 0.12 (0-0.5) x10^3/uL Immature Gran # (Auto) 0.01 (0.00-0.03) x10^3u/L Absolute Lymphs (auto) 1.54 (1.0-4.6) x10^3/uL Absolute Monos (auto) 0.48 (0.0-1.3) x10^3/uL Absolute Nucleated RBC 0.00 (0.00-0.01) x10^3u/L Lymphocytes % 32.3 (24.0-44.0) % Monocytes % 10.1 (0.0-12.0) % Eosinophils % 2.5 (0.00-5.0) % Basophils % 1.3 (0.0-0.4) % Absolute Granulocytes 2.56 (1.4-6.9) x10^3/uL Basophils # 0.06 (0-0.4) x10^3/uL Sodium (137-145) mmol/L Potassium (3.5-5.1) mmol/L Chloride (98-107) mmol/L Carbon Dioxide (22-30) mmol/L Anion Gap (5-15) MEQ/L BUN (7-17) mg/dL Creatinine (0.52-1.04) mg/dL Estimated GFR ML/MIN Glucose (74-106) mg/dL Calcium (8.4-10.2) mg/dL Total Bilirubin (0.2-1.3) mg/dL AST (14-36) U/L ALT (0-35) U/L Alkaline Phosphatase (38-126) U/L Troponin I (0.000-0.034) ng/mL Serum Total Protein (6.3-8.2) g/dL Albumin (3.5-5.0) g/dL Amylase (30-110) U/L Lipase (23-300) U/L Serum , Qual (Negative) Urine Color (Yellow) Urine Appearance (Clear) Urine pH (4.6-8.0) Ur Specific [place] (1.005-1.030) Urine Protein (Negative) Urine Glucose (UA) (Negative) mg/dL Urine Ketones (Negative) Urine Blood (Negative) Urine Nitrite (Negative) Urine Bilirubin (Negative) Urine Urobilinogen (0.2) mg/dL Ur Leukocyte Esterase (Negative) U Hyaline Cast (Auto) (0-2) /LPF Urine Microscopic RBC (0-5) /HPF Urine Microscopic WBC (0-5) /HPF Ur Epithelial Cells (None Seen) /HPF Urine Bacteria (None Seen) /HPF Urine Culture Reflexed (NO) Urine Opiates Level (NEGATIVE) Ur Methadone (NEGATIVE) Acetaminophen (10-30) ug/ml Urine Barbiturates (NEGATIVE) Ur Phencyclidine (PCP) (NEGATIVE) Urine Amphetamine (NEGATIVE) U Benzodiazepine Level (NEGATIVE) Urine Cocaine (NEGATIVE) Urine Marijuana (THC) (NEGATIVE) Monoscreen (Negative) Influenza Type A Ag (NEGATIVE) Influenza Type B Ag (NEGATIVE) RSV (PCR) (NEGATIVE) SARS-CoV-2 (PCR) (NEGATIVE) Slides for Path Review YES Radiology Exams: Radiology Procedures Category Date Time Status ABDOMEN AND PELVIS W CONTRAST [CT] Stat Exams 01/05/23 20:53 Taken LIVER OR SPLEEN [US] Routine Exams 01/06/23 08:39 Ordered Assessment/Plan (1) Upper GI bleed Current Visit: Yes Status: Acute Assessment & Plan: consult surgery, decrease in h/h noted since admission but stable. continue IV protonix, will increase to bid, make npo. likely needs EGD, feels like she might have a stricture as well. Code(s): K92.2 - GASTROINTESTINAL HEMORRHAGE, UNSPECIFIED (2) Eosinophilic esophagitis Current Visit: Yes Status: Acute Code(s): K20.0 - EOSINOPHILIC ESOPHAGITIS (3) Epigastric pain Current Visit: Yes Status: Acute Assessment & Plan: check ebv antibody panel due to exposure, hepatitis panel pending. appears to be related to acute illness rather than medication or obstruction, will check liver u/s but I don't believe she appears to be obstructed, check fractionated bili as well. Code(s): R10.13 - EPIGASTRIC PAIN (4) Transaminitis Current Visit: Yes Status: Acute Code(s): R74.01 - ELEVATION OF LEVELS OF LIVER TRANSAMINASE LEVELS
--- NOTE | 2023-01-06 11:44 | XRAY ---
Indication: Elevated liver enzymes and bilirubin. Cholecystectomy. Two-dimensional right upper quadrant abdominal sonogram performed. Comparison: None Visualized liver and pancreas appear homogeneous in echogenicity. No organomegaly or free fluid. Gallbladder surgically absent. Common bile duct measures 4.7 mm. No intrahepatic biliary distention. Right kidney measures 9.4 cm in length and sonographically normal. Impression: Cholecystectomy. Negative right upper quadrant sonogram.
[2023-01-06] MEDS: ULTRAM 50 MG PO PRN ×2 (11:52→17:31)
[2023-01-06] MEDS: Zofran 4 MG/2 ML VIAL IV PRN ×2 (13:46→20:27)
[2023-01-06] MEDS: MORPHINE SULFATE 2 MG INJ IV PRN ×2 (13:46→20:27)
[2023-01-06] MEDS ORDERED: Lactated Ringers 1,000 ML IV ONE (14:49)
[2023-01-06] MEDS ORDERED: Xylocaine-Mpf 2% 5 Ml Vial ONE (15:21)
[2023-01-06] MEDS ORDERED: DIPRIVAN 200 MG/20 ML IV ONE (15:21)
--- NOTE | 2023-01-06 15:38 | CONS ---
CONSULT DATE: 01/06/2023 HISTORY: This patient is seen for Dr. 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 I was here doing some outpatient procedures and asked that I see the patient who is a patient of Dr. Bob Tabares who was admitted yesterday. She had some epigastric pain. She had some dark stools or black stools. She had some anemia. The pain has been going on for a few months. She had some nausea but no vomiting. She said she has history of esophagitis in the past, distant EGD and colonoscopy in the past reports showed eosinophilic esophagitis but did not follow up for treatment. PAST MEDICAL HISTORY: Asthma, migraines, ulcer, anxiety, depression, back issues. PAST SURGICAL HISTORY: Laparoscopy for ovarian/gynecologic problem in the past. She had cholecystectomy in the past. She had knee surgery. Tonsillectomy. Carpal tunnel. HOME MEDICATIONS: Bupropion, escitalopram. ALLERGIES: PENICILLIN. FAMILY HISTORY: Negative in regards to this specific problem. SOCIAL HISTORY: Former smoker. REVIEW OF SYSTEMS: Fourteen systems reviewed. No chest pain or palpitations other systems negative or noncontributory as above and per preadmission questionnaire. PHYSICAL EXAMINATION: GENERAL: She is afebrile. Vital signs stable. HEENT: Sclera nonicteric. NECK: No JVD. CHEST: Equal excursion. CVS: Regular rhythm and pulse. ABDOMEN: Epigastric tenderness. No rebound. Nondistended. EXTREMITIES: No cyanosis. NEURO: Alert. PSYCH: Appropriate mood and affect. LAB DATA AND TESTS: White count was 6.7, hemoglobin 13.3 on admission and is 11 now, white count 4.8. She did have some transaminitis of unclear etiology. Lipase was normal. Her alkaline phosphatase 196, AST 511, total bilirubin 1.6. However, her direct bilirubin today is 0.2. She does not appear to be obstructed phenomenon. The acetaminophen level was okay and the bilirubin 0.2. No evidence of obstruction. White count 4.8, hemoglobin 11, PLT 215,000. Ultrasound negative. She had cholecystectomy in the past. No intrahepatic biliary distention. CT showed some fecal stasis otherwise fairly unremarkable, according to the radiologist. IMPRESSION: Epigastric pain. She has a little bit of anemia. She had some dark stools. Question whether had some gastritis, peptic ulcer disease, esophagitis or other etiology. I feel she needs EGD possible biopsy. General risk of infection, risk of bowel injury or perforation possibly requiring open procedure, risk of sedation but not limited to. Unclear etiology of her transaminase whether it is medication induced or hepatitis related or other etiology. The fact that the bilirubin is normal does not seem to be obstructed or enlarged on the liver ultrasound with no distention of bile ducts. Question whether there is more of a medical reason other than obstructed problem. Continue following liver enzymes. The office asked that I perform procedure of upper endoscopy while I was here. The patient agreed to the planned procedure.
[2023-01-07 05:11] LABS: Absolute Neutrophil Ct (ANC) 3.69 x10^3/uL (1.4-6.9); BASOPHIL % 0.7 % (0.0-0.4); Basophil (Absolute #) 0.04 x10^3/uL (0-0.4); Eosinophil % 2.1 % (0.00-5.0); Eosinophil (Absolute #) 0.12 x10^3/uL (0-0.5); Hematocrit 34.2 % (35-47); Hemoglobin 11.3 g/dL (12.0-16.0); IMMATURE GRAN # 0.01 x10^3u/L (0.00-0.03); IMMATURE GRAN % 0.2 % (0.00-0.4); Lymphocyte (Absolute #) 1.57 x10^3/uL (1.0-4.6); Lymphocytes % 26.8 % (24.0-44.0); Mean Cell Volume 93.2 fL (78-100); Mean Corpuscular Hemoglobin 30.8 pg (26-32); Mean Platelet Volume 13.1 fL (7.5-11.0); Monocyte (Absolute #) 0.42 x10^3/uL (0.0-1.3); Monocytes % 7.2 % (0.0-12.0); Platelet Count 209 x10^3/uL (150-450); Red Blood Count 3.67 x10^6/uL (4.1-5.4); Red Cell Distribution Width 13.1 % (11.5-14.0); White Blood Count 5.9 x10^3/uL (4.0-10.5)
[2023-01-07 05:44] LABS: ALBUMIN 3.3 g/dL (3.5-5.0); ALKALINE PHOSPHATASE 154 U/L (38-126); ANION GAP 11.1 MEQ/L (5-15); BLOOD UREA NITROGEN 11 mg/dL (7-17); CHLORIDE 108 mmol/L (98-107); Calcium 8.3 mg/dL (8.4-10.2); Carbon Dioxide 22 mmol/L (22-30); Creatinine 1 0.77 mg/dL (0.52-1.04); EST GLOMERULAR FILTRATION RATE > 60.0 ML/MIN; Glucose 82 mg/dL (74-106); Potassium 4.1 mmol/L (3.5-5.1); SGOT/AST 159 U/L (14-36); SGPT/ALT 295 U/L (0-35); SODIUM 138 mmol/L (137-145); Total Protein 5.9 g/dL (6.3-8.2)
[2023-01-07 08:12] LABS: HBsAg Screen Negative (Negative); HCV Ab Non Reactive (Non Reactive); Hep A Ab, IgM Negative (Negative); Hep B Core Ab, IgM Negative (Negative)
--- NOTE | 2023-01-07 08:39 | OP ---
SURGERY DATE/TIME: 01/06/2023 1517 PREOPERATIVE DIAGNOSIS: History of melena, history of epigastric pain, history of anemia need for upper endoscopy to evaluate for gastritis, esophagitis, ulcer disease or other etiology. POSTOPERATIVE DIAGNOSES: 1) Gastritis with some raised petechial hemorrhages. 2) Distal esophagitis and a little more proximal esophagitis (history of prior eosinophilic esophagitis in the past). 3) Very small hiatal weakness. PROCEDURES: 1) EGD with cold biopsy of small bowel to evaluate for celiac sprue. 2) Cold biopsy of the antrum to evaluate for Helicobacter pylori. 3) Cold biopsy of gastric body inflammation for path and histology. 4) Cold biopsy distal esophagus to evaluate for short segment distal esophagitis. 5) Cold biopsy mid esophagus to evaluate for eosinophilic esophagitis. SURGEON: Dr. Slava Muro. FRONT COUNTER ATTENDANT: Contreras Bueno, Medical Student III. ANESTHESIA: MAC. ESTIMATED BLOOD LOSS: Minimal. INDICATIONS: As noted above. Risks and benefits explained in detail and not limited to and consent obtained. DESCRIPTION OF PROCEDURE AND FINDINGS: The patient is taken to the endoscopy room. MAC anesthesia introduced. After official time out and no disagreement with planned procedure, bite block positioned. Video gastroscope easily passed down the esophagus through the patent pylorus to the third and fourth portion of the duodenum. No signs of any fresh or old blood in the duodenum. Cold biopsy taken to evaluate for celiac disease and to rule out other causes of her gastric pain. Back in the stomach, she did have some mild gastritis and gastric erythema and edema, very friable mucosa. Cold biopsy taken in the antrum for Helicobacter pylori. Cold biopsy was taken in the gastric body of erythema area with some petechial hemorrhages. On retroflex, there was a slight hiatal weakness a little bit less than the width of the scope. No signs of any large hiatal hernia but slight hiatal weakness. The scope is straightened. Gastroesophageal junction was about 37 to 38 cm. There was a short segment of distal esophagus with a little bit of superficial erosion. No signs of deep erosions. No signs of any mass. Cold biopsy distal esophagus to evaluate for esophagitis. In the more proximal esophagus, she did have inflammation which is consistent with prior history of eosinophilic esophagitis in the past. Cold biopsy is taken for histology. Good hemostasis noted. The scope is withdrawn. There were no signs of any large ulcers but she did have hemorrhagic gastritis and some esophagitis. It is felt she should continue her proton pump inhibitor for medical management. If she continues to drop her hemoglobin down the road might need to consider other etiology such as small bowel or proximal colon. Findings discussed with her in the waiting area.
--- NOTE | 2023-01-07 09:35 | PCM.NOTE ---
Date and Time: 01/07/23932 Subjective Assessment: patient is still very nauseated, dizzy and has true vertigo when she stands. bp is low, black stools or diarrhea Objective Exam General Appearance: no apparent distress Neurologic Exam: alert, oriented x 3 Skin Exam: normal color, warm, dry Respiratory Exam: normal breath sounds, lungs clear, No respiratory distress Cardiovascular Exam: regular rate/rhythm, normal heart sounds Gastrointestinal/Abdomen Exam: soft, tenderness (epigastric) OBJECTIVE DATA Vital Signs: Vital Signs - 24 hr Temp Pulse Resp BP Pulse Ox 01/07/23 04:00 97.8 F 48 L 16 99/56 96 01/06/23 22:54 98.0 F 54 L 16 91/54 97 01/06/23 20: 97.5 F 58 L 16 117/59 97 01/06/23 19:15 48 L 96/58 01/06/23 18:15 97.7 F 49 L 17 101/59 98 01/06/23 17:30 97.8 F 50 L 16 104/55 99 01/06/23 16:55 45 L 16 100/50 98 01/06/23 16:40 97.5 F 45 L 18 104/59 99 01/06/23 16:25 97.6 F 51 L 18 106/69 98 01/06/23 16:10 97.6 F 61 16 106/61 97 01/06/23 14:46 98.9 F 54 L 18 103/58 97 01/06/23 12:00 98.9 F 54 L 18 103/58 97 Pain Assessment - Last Documented Pain Intensity 0 Pain Scale Used 0-10 Pain Scale Intake and Output: Intake & Output 01/04/23 01/05/23 01/06/23 01/07/23 11:59 11:59 11:59 11:59 Intake Total 0 800 Balance 0 800 Weight 69.5 kg 69.5 kg Lab Results: Lab Results-Last 24 Hours 01/07/23 01/07/23 Range/Units 05:13 05:13 WBC 5.9 (4.0-10.5) x10^3/uL RBC 3.67 L (4.1-5.4) x10^6/uL Hgb 11.3 L (12.0-16.0) g/dL Hct 34.2 L (35-47) % MCV 93.2 (78-100) fL MCH 30.8 (26-32) pg MCHC 33.0 (32-36) g/dL RDW 13.1 (11.5-14.0) % Plt Count 209 (150-450) x10^3/uL MPV 13.1 H (7.5-11.0) fL Gran % 63.0 (36.0-66.0) % Immature Gran % (Auto) 0.2 (0.00-0.4) % Nucleat RBC Rel Count 0.0 (0.00-0.1) % Eos # (Auto) 0.12 (0-0.5) x10^3/uL Immature Gran # (Auto) 0.01 (0.00-0.03) x10^3u/L Absolute Lymphs (auto) 1.57 (1.0-4.6) x10^3/uL Absolute Monos (auto) 0.42 (0.0-1.3) x10^3/uL Absolute Nucleated RBC 0.00 (0.00-0.01) x10^3u/L Lymphocytes % 26.8 (24.0-44.0) % Monocytes % 7.2 (0.0-12.0) % Eosinophils % 2.1 (0.00-5.0) % Basophils % 0.7 (0.0-0.4) % Absolute Granulocytes 3.69 (1.4-6.9) x10^3/uL Basophils # 0.04 (0-0.4) x10^3/uL Sodium 138 (137-145) mmol/L Potassium 4.1 (3.5-5.1) mmol/L Chloride 108 H (98-107) mmol/L Carbon Dioxide 22 (22-30) mmol/L Anion Gap 11.1 (5-15) MEQ/L BUN 11 (7-17) mg/dL Creatinine 0.77 (0.52-1.04) mg/dL Estimated GFR > 60.0 ML/MIN Glucose 82 (74-106) mg/dL Calcium 8.3 L (8.4-10.2) mg/dL Total Bilirubin 2.20 H (0.2-1.3) mg/dL AST 159 H (14-36) U/L ALT 295 H (0-35) U/L Alkaline Phosphatase 154 H (38-126) U/L Serum Total Protein 5.9 L (6.3-8.2) g/dL Albumin 3.3 L (3.5-5.0) g/dL Radiology Exams: Radiology Procedures Category Date Time Status ABDOMEN AND PELVIS W CONTRAST [CT] Stat Exams 01/05/23 20:53 Completed LIVER OR SPLEEN [US] Routine Exams 01/06/23 10:41 Completed Assessment/Plan (1) Upper GI bleed Current Visit: Yes Status: Acute Assessment & Plan: egd negative, continue IV protonix, likely related to EoE Code(s): K92.2 - GASTROINTESTINAL HEMORRHAGE, UNSPECIFIED (2) Transaminitis Current Visit: Yes Status: Acute Assessment & Plan: unconjugated hyperbilirubinemia with elevated lfts, check alpha 1 at, trevor, anca, ceruloplasmin. suspect a viral etiology and self limited, enzymes are trending down. Code(s): R74.01 - ELEVATION OF LEVELS OF LIVER TRANSAMINASE LEVELS (3) Eosinophilic esophagitis Current Visit: Yes Status: Acute Code(s): K20.0 - EOSINOPHILIC ESOPHAGITIS (4) Epigastric pain Current Visit: Yes Status: Acute Code(s): R10.13 - EPIGASTRIC PAIN
[2023-01-07] MEDS: Dextrose 5%-Lr IV Solution 1000 ML 1,000 ML IV SCH (09:50)
[2023-01-07] MEDS: PROTONIX 40 MG IV IV SCH ×2 (09:53→21:31)
[2023-01-07] MEDS: ANTIVERT 25 MG PO SCH ×3 (09:54→21:30)
[2023-01-07] MEDS: Zofran 4 MG/2 ML VIAL IV PRN (11:18)
[2023-01-07] MEDS: ULTRAM 50 MG PO PRN (11:23)
[2023-01-07] MEDS: BENADRYL 50 MG/ML IV PRN ×2 (12:43→21:30)
[2023-01-07 16:16] LABS: EBV Ab VCA, IgG >600.0 U/mL (0.0-17.9); EBV Ab VCA, IgM <36.0 U/mL (0.0-35.9); EBV Nuclear Antigen Ab, IgG 65.1 U/mL (0.0-17.9)
[2023-01-08 05:12] LABS: Absolute Neutrophil Ct (ANC) 2.37 x10^3/uL (1.4-6.9); BASOPHIL % 1.1 % (0.0-0.4); Basophil (Absolute #) 0.05 x10^3/uL (0-0.4); Eosinophil (Absolute #) 0.09 x10^3/uL (0-0.5); Hematocrit 35.1 % (35-47); Hemoglobin 11.4 g/dL (12.0-16.0); IMMATURE GRAN # 0.01 x10^3u/L (0.00-0.03); IMMATURE GRAN % 0.2 % (0.00-0.4); Lymphocyte (Absolute #) 1.63 x10^3/uL (1.0-4.6); Mean Cell Volume 92.9 fL (78-100); Mean Corpuscular Hemoglobin 30.2 pg (26-32); Mean Corpuscular Hgb Concent. 32.5 g/dL (32-36); Mean Platelet Volume 13.7 fL (7.5-11.0); Monocyte (Absolute #) 0.38 x10^3/uL (0.0-1.3); Monocytes % 8.4 % (0.0-12.0); Neutrophil % 52.3 % (36.0-66.0); Platelet Count 219 x10^3/uL (150-450); Red Blood Count 3.78 x10^6/uL (4.1-5.4); Red Cell Distribution Width 13.3 % (11.5-14.0); White Blood Count 4.5 x10^3/uL (4.0-10.5)
[2023-01-08 05:43] LABS: ALBUMIN 3.4 g/dL (3.5-5.0); ALKALINE PHOSPHATASE 137 U/L (38-126); BLOOD UREA NITROGEN 11 mg/dL (7-17); CHLORIDE 107 mmol/L (98-107); Calcium 8.3 mg/dL (8.4-10.2); Carbon Dioxide 23 mmol/L (22-30); Creatinine 1 0.81 mg/dL (0.52-1.04); EST GLOMERULAR FILTRATION RATE > 60.0 ML/MIN; Glucose 106 mg/dL (74-106); Potassium 3.9 mmol/L (3.5-5.1); SGOT/AST 70 U/L (14-36); SGPT/ALT 219 U/L (0-35); SODIUM 138 mmol/L (137-145); Total Protein 6.1 g/dL (6.3-8.2)
[2023-01-08] MEDS: Dextrose 5%-Lr IV Solution 1000 ML 1,000 ML IV SCH ×2 (05:45→15:55)
[2023-01-08 06:20] LABS: Slide Review 1 YES
[2023-01-08] MEDS ORDERED: BENADRYL 25 MG CAPSULE PO PRN (09:50)
--- NOTE | 2023-01-08 09:54 | PCM.NOTE ---
Date and Time: 01/08/23951 Subjective Assessment: patient c/o dizziness and headache, tolerating some po intake and had a normal bowel movement. GI pain is nearly resolved, overall feeling better from that but very dizzy and lightheaded. not much improvement with meclizine, longstanding hx of low bp but heart rate has been low as well. Objective Exam General Appearance: no apparent distress Respiratory Exam: normal breath sounds, lungs clear, No respiratory distress Cardiovascular Exam: bradycardia Gastrointestinal/Abdomen Exam: soft, No tenderness, No mass Extremity Exam: normal inspection, normal range of motion OBJECTIVE DATA Vital Signs: Vital Signs - 24 hr Temp Pulse Resp BP Pulse Ox 01/08/23 07:13 98.0 F 48 L 14 95/51 97 01/08/23 03:35 98.0 F 51 L 16 89/50 96 01/07/23 23:52 98.1 F 46 L 16 102/56 98 01/07/23 20:00 98.2 F 56 L 18 104/60 98 01/07/23 16:00 98.6 F 51 L 16 102/56 94 L 01/07/23 11:31 98.8 F 51 L 16 103/63 98 Pain Assessment - Last Documented Pain Intensity 5 Pain Scale Used 0-10 Pain Scale Intake and Output: Intake & Output 01/05/23 01/06/23 01/07/23 01/08/23 11:59 11:59 11:59 11:59 Intake Total 0 1040 3368 Balance 0 1040 3368 Weight 69.5 kg 69.5 kg Lab Results: Lab Results-Last 24 Hours 01/05/23 01/06/23 01/07/23 Range/Units 21:00 04:15 18:49 WBC (4.0-10.5) x10^3/uL RBC (4.1-5.4) x10^6/uL Hgb (12.0-16.0) g/dL Hct (35-47) % MCV (78-100) fL MCH (26-32) pg MCHC (32-36) g/dL RDW (11.5-14.0) % Plt Count (150-450) x10^3/uL MPV (7.5-11.0) fL Gran % (36.0-66.0) % Immature Gran % (Auto) (0.00-0.4) % Nucleat RBC Rel Count (0.00-0.1) % Eos # (Auto) (0-0.5) x10^3/uL Immature Gran # (Auto) (0.00-0.03) x10^3u/L Absolute Lymphs (auto) (1.0-4.6) x10^3/uL Absolute Monos (auto) (0.0-1.3) x10^3/uL Absolute Nucleated RBC (0.00-0.01) x10^3u/L Lymphocytes % (24.0-44.0) % Monocytes % (0.0-12.0) % Eosinophils % (0.00-5.0) % Basophils % (0.0-0.4) % Absolute Granulocytes (1.4-6.9) x10^3/uL Basophils # (0-0.4) x10^3/uL Sodium (137-145) mmol/L Potassium (3.5-5.1) mmol/L Chloride (98-107) mmol/L Carbon Dioxide (22-30) mmol/L Anion Gap (5-15) MEQ/L BUN (7-17) mg/dL Creatinine (0.52-1.04) mg/dL Estimated GFR ML/MIN Glucose (74-106) mg/dL POC Glucometer (74 to 106) mg/dL Calcium (8.4-10.2) mg/dL Total Bilirubin (0.2-1.3) mg/dL AST (14-36) U/L ALT (0-35) U/L Alkaline Phosphatase (38-126) U/L Serum Total Protein (6.3-8.2) g/dL Albumin (3.5-5.0) g/dL Stool Occult Blood NEGATIVE (NEGATIVE) EBV Capsid Ag IgG Ab >600.0 H (0.0-17.9) U/mL EBV Capsid Ag IgM Ab <36.0 (0.0-35.9) U/mL EBV Nuclear Ag IgG Ab 65.1 H (0.0-17.9) U/mL EBV Interpretation Comment (.) Hepatitis A IgM Ab Negative (Negative) Hep Bs Antigen Negative (Negative) Hep B Core IgM Ab Negative (Negative) Hep C Ab Signal/Cutoff Non Reactive (Non Reactive) Hepatitis C Interp Comment (.) Slides for Path Review 01/07/23 01/08/23 01/08/23 Range/Units 19:50 05:07 05:07 WBC 4.5 (4.0-10.5) x10^3/uL RBC 3.78 L (4.1-5.4) x10^6/uL Hgb 11.4 L (12.0-16.0) g/dL Hct 35.1 (35-47) % MCV 92.9 (78-100) fL MCH 30.2 (26-32) pg MCHC 32.5 (32-36) g/dL RDW 13.3 (11.5-14.0) % Plt Count 219 (150-450) x10^3/uL MPV 13.7 H (7.5-11.0) fL Gran % 52.3 (36.0-66.0) % Immature Gran % (Auto) 0.2 (0.00-0.4) % Nucleat RBC Rel Count 0.0 (0.00-0.1) % Eos # (Auto) 0.09 (0-0.5) x10^3/uL Immature Gran # (Auto) 0.01 (0.00-0.03) x10^3u/L Absolute Lymphs (auto) 1.63 (1.0-4.6) x10^3/uL Absolute Monos (auto) 0.38 (0.0-1.3) x10^3/uL Absolute Nucleated RBC 0.00 (0.00-0.01) x10^3u/L Lymphocytes % 36.0 (24.0-44.0) % Monocytes % 8.4 (0.0-12.0) % Eosinophils % 2.0 (0.00-5.0) % Basophils % 1.1 (0.0-0.4) % Absolute Granulocytes 2.37 (1.4-6.9) x10^3/uL Basophils # 0.05 (0-0.4) x10^3/uL Sodium 138 (137-145) mmol/L Potassium 3.9 (3.5-5.1) mmol/L Chloride 107 (98-107) mmol/L Carbon Dioxide 23 (22-30) mmol/L Anion Gap 12.0 (5-15) MEQ/L BUN 11 (7-17) mg/dL Creatinine 0.81 (0.52-1.04) mg/dL Estimated GFR > 60.0 ML/MIN Glucose 106 (74-106) mg/dL POC Glucometer 145 H (74 to 106) mg/dL Calcium 8.3 L (8.4-10.2) mg/dL Total Bilirubin 1.40 H (0.2-1.3) mg/dL AST 70 H (14-36) U/L ALT 219 H (0-35) U/L Alkaline Phosphatase 137 H (38-126) U/L Serum Total Protein 6.1 L (6.3-8.2) g/dL Albumin 3.4 L (3.5-5.0) g/dL Stool Occult Blood (NEGATIVE) EBV Capsid Ag IgG Ab (0.0-17.9) U/mL EBV Capsid Ag IgM Ab (0.0-35.9) U/mL EBV Nuclear Ag IgG Ab (0.0-17.9) U/mL EBV Interpretation (.) Hepatitis A IgM Ab (Negative) Hep Bs Antigen (Negative) Hep B Core IgM Ab (Negative) Hep C Ab Signal/Cutoff (Non Reactive) Hepatitis C Interp (.) Slides for Path Review YES Radiology Exams: Radiology Procedures Category Date Time Status LIVER OR SPLEEN [US] Routine Exams 01/06/23 10:41 Completed Multi-Disciplinary Progress Notes: Multi-Disciplinary Progress Notes 01/07/23 10:41 Case Management Note by Susie De Los Santos NO CHANGE IN DC PLANS AT THIS TIME- PATIENT TO RETURN HOME TO HER PLF AT TIME OF DC Initialized on 01/07/23 10:41 - END OF NOTE Assessment/Plan (1) Upper GI bleed Current Visit: Yes Status: Acute Code(s): K92.2 - GASTROINTESTINAL HEMORRHAGE, UNSPECIFIED (2) Transaminitis Current Visit: Yes Status: Acute Code(s): R74.01 - ELEVATION OF LEVELS OF LIVER TRANSAMINASE LEVELS (3) Eosinophilic esophagitis Current Visit: Yes Status: Acute Code(s): K20.0 - EOSINOPHILIC ESOPHAGITIS (4) Epigastric pain Current Visit: Yes Status: Acute Code(s): R10.13 - EPIGASTRIC PAIN (5) Vertigo Current Visit: Yes Status: Acute Code(s): R42 - DIZZINESS AND GIDDINESS (6) Hypotension Current Visit: Yes Status: Acute Code(s): I95.9 - HYPOTENSION, UNSPECIFIED (7) Bradycardia Current Visit: Yes Status: Acute Assessment & Plan: will consult cardiology, she is stable from GI standpoint for discharge but will consult cardiology due to dizziness, low bp and bradycardia. Code(s): R00.1 - BRADYCARDIA, UNSPECIFIED
[2023-01-08] MEDS: ANTIVERT 25 MG PO SCH ×3 (09:59→23:54)
[2023-01-08] MEDS: Protonix 40MG Tablet PO SCH (11:08)
[2023-01-08 13:25] LABS: Ceruloplasmin 21.8 mg/dL (19.0-39.0)
[2023-01-08] MEDS ORDERED: MOTRIN 400 MG PO PRN (15:45)
[2023-01-08] MEDS: Zofran 4 MG/2 ML VIAL IV PRN (17:37)
[2023-01-08] MEDS ORDERED: Transderm Scop 1.5MG Patch TOP ONE (20:54)
[2023-01-08] MEDS ORDERED: BENADRYL 50 MG/ML IV PRN (23:05)
[2023-01-08] MEDS ORDERED: BENADRYL 50 MG/ML ONE (23:07)
[2023-01-09 05:11] LABS: Absolute Neutrophil Ct (ANC) 2.45 x10^3/uL (1.4-6.9); BASOPHIL % 1.4 % (0.0-0.4); Basophil (Absolute #) 0.07 x10^3/uL (0-0.4); Eosinophil (Absolute #) 0.15 x10^3/uL (0-0.5); Hematocrit 36.2 % (35-47); Hemoglobin 11.7 g/dL (12.0-16.0); IMMATURE GRAN # 0.02 x10^3u/L (0.00-0.03); IMMATURE GRAN % 0.4 % (0.00-0.4); Lymphocyte (Absolute #) 1.85 x10^3/uL (1.0-4.6); Lymphocytes % 37.2 % (24.0-44.0); Mean Cell Volume 93.5 fL (78-100); Mean Corpuscular Hemoglobin 30.2 pg (26-32); Mean Corpuscular Hgb Concent. 32.3 g/dL (32-36); Mean Platelet Volume 13.3 fL (7.5-11.0); Monocyte (Absolute #) 0.43 x10^3/uL (0.0-1.3); Monocytes % 8.7 % (0.0-12.0); Neutrophil % 49.3 % (36.0-66.0); Platelet Count 220 x10^3/uL (150-450); Red Blood Count 3.87 x10^6/uL (4.1-5.4)
[2023-01-09 05:36] LABS: ALBUMIN 3.5 g/dL (3.5-5.0); ALKALINE PHOSPHATASE 146 U/L (38-126); ANION GAP 12.2 MEQ/L (5-15); BLOOD UREA NITROGEN 12 mg/dL (7-17); CHLORIDE 106 mmol/L (98-107); Calcium 8.5 mg/dL (8.4-10.2); Carbon Dioxide 24 mmol/L (22-30); Creatinine 1 0.83 mg/dL (0.52-1.04); EST GLOMERULAR FILTRATION RATE > 60.0 ML/MIN; Glucose 92 mg/dL (74-106); Potassium 3.8 mmol/L (3.5-5.1); SGOT/AST 44 U/L (14-36); SGPT/ALT 165 U/L (0-35); SODIUM 139 mmol/L (137-145); Total Protein 6.2 g/dL (6.3-8.2)
[2023-01-09] MEDS: Protonix 40MG Tablet PO SCH (09:32)
[2023-01-09] MEDS: ANTIVERT 25 MG PO SCH ×2 (09:33→15:44)
[2023-01-09 09:55] LABS: Slide Review 1 YES
--- NOTE | 2023-01-09 13:12 | ECHO ---
DATE OF TEST: 01/08/2023 INDICATION: Bradycardia and hypotension. FINDINGS: 1) Normal left ventricular wall size and left ventricular wall thickness with normal left ventricular systolic function. Overall left ventricular ejection fraction is estimated at 55-60%. No wall motion abnormalities were noted. Left ventricle inflow Doppler examination is normal for patient's age. Right ventricle is normal in size and systolic function. 2) Normal left atrial size. Normal right atrial size. There is no obvious shunt across the atrial septum by Color Doppler. 3) Borderline mitral valve prolapse with trivial mitral regurgitation. Tricuspid valve is structurally normal with trace tricuspid regurgitation and estimated pulmonary artery systolic pressure of 40 mm of Mercury which is around upper limits of normal. Aortic valve appears to be trileaflet with normal valve excursion. No aortic insufficiency was noted. Pulmonic valve is grossly normal with trace pulmonic insufficiency. 4) No pericardial effusion. 5) Aortic root is normal in size. 6) Inferior vena cava is normal in size. IMPRESSION: 1) NORMAL LEFT VENTRICLE SIZE AND SYSTOLIC FUNCTION. OVERALL LEFT VENTRICULAR EJECTION FRACTION OF 55-60%. NORMAL LEFT VENTRICLE DIASTOLIC FUNCTION. 2) BORDERLINE INSIGNIFICANT MITRAL VALVE PROLAPSE WITH TRIVIAL MITRAL REGURGITATION.
--- NOTE | 2023-01-09 15:11 | XRAY ---
Indication: Elevated liver function tests. Common bile duct stone. Cholecystectomy. Conventional MRCP performed. Comparison: None Cholecystectomy without abnormal fluid in gallbladder fossa. Common bile duct measures 5 mm in diameter. No intrahepatic biliary distention. No biliary filling defect/stone. Pancreatic duct not distended. Visualized stomach and bowel loops appear nonobstructed. No free fluid. Visualized liver, pancreas, spleen, adrenal glands, kidneys, proximal ureters, aorta, and IVC are unremarkable. No abnormal bone marrow signal. Impression: Cholecystectomy. Remaining MRCP is negative.
[2023-01-09 16:33] VITALS: BP 101/66; PULSE 44; O2SAT 99
[2023-01-10 13:08] LABS: Anti-Centromere B Antibodies <0.2 AI (0.0-0.9); Anti-Jo-1 <0.2 AI (0.0-0.9); Antichromatin Antibodies <0.2 AI (0.0-0.9); Antiribosomal P Antibodies <0.2 AI (0.0-0.9); Antiscleroderma-70 Antibodies <0.2 AI (0.0-0.9); RNP Antibodies <0.2 AI (0.0-0.9); Sjogren's Anti-SS-A <0.2 AI (0.0-0.9); Sjogren's Anti-SS-B <0.2 AI (0.0-0.9); Smith/RNP Antibodies <0.2 AI (0.0-0.9)
[2023-01-10 13:39] LABS: Anti-DNA (DS) Ab Qn 1 IU/mL (0-9); Antinuclear Antiboides, IFA Positive (.)
--- NOTE | 2023-01-24 11:52 | DS ---
DISCHARGE DIAGNOSES: 1) UPPER GASTROINTESTINAL BLEED. 2) TRANSAMINITIS. 3) EOSINOPHILIC ESOPHAGITIS. 4) EPIGASTRIC PAIN. 5) VERTIGO. 6) HYPOTENSION. 7) BRADYCARDIA. HOSPITAL COURSE: The patient is a 47-year-old female who presented with upper GI bleed-type symptoms with elevated liver functions and has a previous history eosinophilic esophagitis. She was consulted by surgery and had an EGD with some friability of the esophageal mucosa but no obvious active bleeding or intervention required. A scope done by general surgery. She also had elevated liver functions and had work up of this including hematological studies and hepatitis profiles and those were negative. Her liver functions were trending down. She had some hypotension and bradycardia but this is long standing for her and she has had lifelong low blood pressure. She had a cardiology evaluation which was essentially uneventful. Her initial presenting AST on liver functions was 511 with ALT of 387. At the time of discharge and her AST was down to 44 and ALT was down to 165. She is tolerating p.o. and felt to be stable for discharge. Due to her elevated liver functions and concern, I did consult with [facility], Dr. Adrian who recommended MRCP. He felt as though if MRCP showed no common bile duct stone as she has had a previous cholecystectomy, he did not feel ERCP or transfer was warranted at that time. She had a negative MRCP. Therefore, the patient actually had nursing call me to request discharge that evening since her work up had essentially been negative. DISCHARGE PHYSICAL EXAM: Vital signs at discharge: Temperature 98.6F, pulse 57, respiratory rate 17, blood pressure 101/66. Oxygen saturation was 99% on room air. ENT: Exam was unremarkable. CVS: Her heart was regular. RESPIRATORY: Clear. ABDOMEN: Soft, nontender. DISCHARGE MEDICATIONS: Lexapro 10 mg p.o. daily, Wellbutrin XL 150 mg p.o. q.d., Zofran 4 mg p.o. every six hours PRN for nausea, Protonix 40 mg p.o. q.a.m. DISCHARGE FOLLOW UP: She was instructed to follow up with neurology and ENT as an outpatient following discharge.
== END 2023-01-09 18:04 | disposition home or self-care (01) ==
LOC: ED 19:40 → MED SURG 23:27
PROVIDERS: ADMIT Family Medicine; ATTEND Family Medicine
DX: K92.2 Gastrointestinal hemorrhage, unspecified (principal); K92.1 Melena; R10.13 Epigastric pain; D64.9 Anemia, unspecified; R23.3 Spontaneous ecchymoses; K20.0 Eosinophilic esophagitis; R74.01 Elevation of levels of liver transaminase levels; R42 Dizziness and giddiness; I95.9 Hypotension, unspecified; R00.1 Bradycardia, unspecified; Z79.899 Other long term (current) drug therapy; Z20.828 Contact with and (suspected) exposure to other viral communicable diseases
CPT/HCPCS: 0241U; 36000; 36415; 43239; 74177; 74181; 76705; 80053; 80074; 80143; 80307; 81001; 81332; 82150; 82248; 82274; 82390; 82947; 83516; 83690; 84443; 84484; 84703; 85025; 86037; 86038; 86308; 86664; 86665; 88305; 93005; 93268; 93306; 96374; 96375; 99285; G0378; Q3014; 99140; J1200; J1885; J2270; J2405; J2704; A9270-GY; G0328

== ENCOUNTER 2025-02-01 06:07 | Day surgery (SDC) | payer OTHER ==
[2025-02-01 06:25] LABS: HCG URINE TEST NEGATIVE (NEGATIVE)
[2025-02-01] MEDS ORDERED: NEURONTIN ONE (06:27)
[2025-02-01] MEDS ORDERED: CEFAZOLIN 2 GM/100 ML NaCl 2 GM/100 ML IVPB IV ONE (06:27)
[2025-02-01] MEDS ORDERED: TYLENOL EXTRA STRENGTH 500 MG ONE (06:27)
[2025-02-01] MEDS ORDERED: Decadron 4 MG ONE (06:27)
[2025-02-01] MEDS ORDERED: Lactated Ringers 1,000 ML IV ONE ×2 (06:28→10:34)
[2025-02-01] MEDS ORDERED: celeBREX 100 MG ONE (06:28)
[2025-02-01] MEDS: CEFAZOLIN 2 GM/100 ML NaCl 2 GM/100 ML IVPB IV SCH (06:31)
[2025-02-01] MEDS: NEURONTIN PO ONE (06:31)
[2025-02-01] MEDS: TYLENOL EXTRA STRENGTH 500 MG PO ONE (06:31)
[2025-02-01] MEDS: celeBREX 100 MG PO ONE (06:32)
[2025-02-01] MEDS: Decadron 4 MG PO ONE (06:32)
[2025-02-01] MEDS: Lactated Ringers 1,000 ML IV SCH (06:33)
[2025-02-01 06:47] LABS: Absolute Neutrophil Ct (ANC) 2.37 x10^3/uL (1.56-6.13); BASOPHIL % 1.4 % (0.1-1.2); Basophil (Absolute #) 0.07 x10^3/uL (0.01-0.08); Eosinophil % 2.7 % (0.7-5.8); Eosinophil (Absolute #) 0.14 x10^3/uL (0.04-0.36); Hematocrit 38.5 % (34.1-44.9); Hemoglobin 12.8 g/dL (11.2-15.7); IMMATURE GRAN # 0.01 x10^3u/L (0.001-0.031); IMMATURE GRAN % 0.2 % (0.001-0.429); Lymphocyte (Absolute #) 2.21 x10^3/uL (1.18-3.74); Mean Cell Volume 90.8 fL (79.4-94.8); Mean Corpuscular Hemoglobin 30.2 pg (25.6-32.2); Mean Corpuscular Hgb Concent. 33.2 g/dL (32.2-35.5); Mean Platelet Volume 12.1 fL (9.4-12.3); Monocyte (Absolute #) 0.34 x10^3/uL (0.24-0.86); Monocytes % 6.6 % (4.7-12.5); Neutrophil % 46.1 % (34.0-71.1); Platelet Count 266 x10^3/uL (182-369); Red Blood Count 4.24 x10^6/uL (3.93-5.22); Red Cell Distribution Width 13.3 % (11.7-14.4); White Blood Count 5.1 x10^3/uL (3.98-10.04)
[2025-02-01 06:53] VITALS: RESP 18
[2025-02-01 07:03] LABS: ALBUMIN 4.4 g/dL (3.5-5.0); ANION GAP 13.1 MEQ/L (5-15); BILIRUBIN,TOTAL 0.5 mg/dL (0.2-1.3); Calcium 9.2 mg/dL (8.4-10.2); Creatinine 1 0.76 mg/dL (0.52-1.04); EST GLOMERULAR FILTRATION RATE 97.2 ML/MIN
[2025-02-01] MEDS ORDERED: Marcaine Mpf 0.5% Vial 30 Ml ONE ×2 (07:17→11:45)
[2025-02-01] MEDS ORDERED: Xylocaine 1% Vial 30 ML PF IJ ONE (07:18)
[2025-02-01] MEDS ORDERED: Versed 2 MG/2 ML Injection ONE (08:57)
[2025-02-01] MEDS ORDERED: TORAdol 30 mg Injection ONE (08:58)
[2025-02-01] MEDS ORDERED: SUBLIMAZE 100 MCG/2 ML ONE ×2 (08:58→11:08)
[2025-02-01] MEDS ORDERED: Xylocaine-Mpf 2% 5 Ml Vial ONE (08:58)
[2025-02-01] MEDS ORDERED: propofoL IV ONE (08:58)
[2025-02-01] MEDS ORDERED: Zofran 4 MG/2 ML VIAL ONE ×2 (08:58→11:10)
[2025-02-01] MEDS ORDERED: Ephedrine Sulfate 50 MG/ML ONE (09:32)
--- NOTE | 2025-02-01 10:57 | XRAY ---
Indication: Right 1st MTP arthrodesis. Intraoperative fluoroscopy provided for 48 seconds. 13 digital spot images submitted for interpretation ultimately demonstrates 1st MTP arthrodesis with intact fixation plate/screws. Correlate with intraoperative findings/report.
[2025-02-01] MEDS ORDERED: Compazine 10 MG/2 ML ONE (11:24)
[2025-02-01] MEDS ORDERED: EXPAREL 133 MG/10 ML VIAL IJ ONE (11:45)
[2025-02-01 13:00] VITALS: TEMP 97.2
[2025-02-01 13:09] VITALS: BP 111/65; PULSE 72; O2SAT 97
--- NOTE | 2025-02-02 09:21 | OP ---
SURGERY DATE/TIME: 02/01/2025 [id number] PREOPERATIVE DIAGNOSES: 1) Posttraumatic arthritis, first metacarpophalangeal joint, right foot. 2) Right foot pain. 3) Osteoarthritis first metacarpophalangeal joint, right foot. POSTOPERATIVE DIAGNOSES: 1) Posttraumatic arthritis, first metacarpophalangeal joint, right foot. 2) Right foot pain. 3) Osteoarthritis first metacarpophalangeal joint, right foot. PROCEDURE: First metacarpophalangeal joint arthrodesis, right foot. SURGEON: Nilesh Fuentes MD FORGING DIE FINISHER: DESTINEY Chaparro; KATHY Valenzuela. ANESTHESIA: General. HEMOSTASIS: An ankle tourniquet set to 250 mmHg for a total of 42 total tourniquet minutes. ESTIMATED BLOOD LOSS: Minimal. INJECTABLES: A 20 mL injection of a 1:1 mixture of 1% lidocaine plain and 0.5% bupivacaine plain injected in a Correa block to the right foot. INDICATIONS FOR PROCEDURE: The patient is a very pleasant 49-year-old female who presented to my service with complaint of pain approximately 1 year ago. She did develop an avulsion fracture off of the lateral base of the proximal phalanx, however, went on to heal relatively asymptomatically. Over the last several months, she has had increasing pain to the first MPJ for which new x-rays were taken. From that standpoint, patient did have a significant amount of pain associated with the range of motion, as well as day-to-day with the inflammation that is associated with the arthritis that she has developed relatively quickly after this injury. From that standpoint, patient is looking for a solution. Options were offered from a conservative standpoint; however, patient was assertive in that she would like to proceed with a definitive option. Options were discussed, however, I did want to proceed with an MRI. Once the MRI was obtained, it all but solidified that a fusion would be a good option for her given loss of nearly 50% of her cartilage to the lateral aspect of the first metatarsophalangeal joint. From that standpoint, all risks, complications and benefits of surgical intervention at this time including, but not limited to, infection, hematoma, seroma, possibility of delayed wound healing, non-wound healing, possibility of failure of surgical intervention, and possible need for further surgical intervention at a later date were discussed. No guarantees were provided as to the outcome of surgical intervention. Plenty of time was allowed for the patient to ask questions and the option for a second opinion was provided. From that standpoint, patient is willing to proceed. DESCRIPTION OF PROCEDURE AND FINDINGS: Patient was brought into the operating room, placed on the operating room table in the supine position. At this time, general anesthesia was administered until the patient was adequately sedated. A well-padded ankle tourniquet was applied to the patient's right ankle and the tourniquet was set to 250 mmHg. At this time, the right lower extremity was prepped and draped in the typical sterile fashion. At this time, an Esmarch was utilized to exsanguinate the foot and the tourniquet was inflated to 250 mmHg. At this time, a 15 blade was then utilized at the medial aspect of the extensor hallucis longus and the incision was deepened along the soft tissue planes, being careful not to damage any neurovascular structures. Any bleeders that were encountered were either cauterized or hand tied. From that standpoint, once the joint capsule was identified, an incision was made, performing J strokes at the medial and lateral collateral ligaments. Inspection of the joint was performed, demonstrating complete cartilage loss to the lateral aspect of the metatarsal head, 50% of the cartilage was gone from this aspect and then, the base of the proximal phalanx was assessed and circumferentially exception for the center portion of the proximal phalanx, the cartilage was completely gone demonstrating a more severe loss than anticipated of the cartilage. Decision was made to proceed with the cup and conical reamers, removing all remaining cartilage from both sites. Once this was performed, copious amounts of sterile saline was utilized to flush the site. A 2.0 mm drill was then utilized to fenestrate the first metatarsal head, as well as the base of the proximal phalanx, allowing for vascular ingrowth. Once this was performed, the joint was appositioned. An [facility] first MPJ 0 degree plate was then introduced, assessing the position. Once the position was assessed, the proximal aspect of the plate was fixated utilizing a fixation pin and then, an interfragmentary K-wire for the VPC screw was introduced, securing the position at 15 degrees of dorsiflexion and in the transverse plane, as well as frontal plane in the appropriate position in a loaded position. From that standpoint, distal locking screws were then introduced into the plate. The 3.4 x 32 variable compression screw was then introduced and then, the eccentric screw was then introduced, alternating between the VPC and the eccentric screw to gain the maximum amount of compression. From that standpoint, a combination of locking and nonlocking screws was then utilized to complete the arthrodesis. Once this was performed, copious amounts of sterile saline were utilized to flush the surgical site. A 4-0 Monocryl was then utilized to repair the capsule to the extensor hallucis longus and then, 4-0 Monocryl was then utilized to coapt the subcutaneous tissue in a simple interrupted buried-type fashion. Following this, a 3-0 nylon was then utilized to close the skin in a horizontal mattress-type fashion, everting the skin edges slightly. Following this, a dressing consisting of Betadine, Adaptic, 4 x 4, Kerlix, ABD and Aníbal was applied to the patient's right lower extremity. Patient then was reversed from anesthesia and returned to the postoperative anesthesia care unit with vital signs stable and vascular status intact. Patient handled the anesthesia, as well as the procedure, without significant complication. Postoperative orders as indicated in the patient's discharge chart.
--- NOTE | 2025-02-02 09:30 | XRAY ---
48 seconds of fluoroscopy was used in surgery for a right 1st MTP arthrodesis.
== END 2025-02-01 13:21 | disposition home or self-care (01) ==
LOC: SDC 06:07
PROVIDERS: ATTEND Podiatrist Foot & Ankle Surgery
DX: M19.171 Post-traumatic osteoarthritis, right ankle and foot (principal); M79.671 Pain in right foot; M25.474 Effusion, right foot
CPT/HCPCS: 28750; 73630; 76000; 80053; 81025; 85025; C1713; J0666; J0690; J1885; J2250; J2405; J2704; J3010; A9270-GY